=== PATIENT | male | born 1960 | race American Indian/Alaskan Native ===

== ENCOUNTER 2017-04-19 12:26 | Emergency (ER) | payer MEDICAID ==
[2017-04-19 12:28] VITALS: BMI 35.4
[2017-04-19 12:37] VITALS: TEMP 98.5
[2017-04-19] MEDS ORDERED: Bupivacaine 0.5% Inj(30mL) IJ STA (12:57)
--- NOTE | 2017-04-19 13:01 | ED PDOC ---
Arrival/HPI - General Chief Complaint: Abnormal Skin Integrity Time Seen by Provider: 04/19/17 12:45 Historian: Patient - History of Present Illness Narrative History of Present Illness (Text): 04/19/17 13:01 54 y/o male, pmh including DM/hypercholestremia, nkda, c/o posterior neck lump and pain x 6 days with no fall or trauma. Patient stated he saw Dr. Sherman Thomas who performed an I&D x 2 days ago. Patient stated he changes dressing this morning. Packing came off during wound dressing changing. He stated abscess started to swell up. He feels infection has worsen. Patient admits taking ABX as instructed by his doctor. Patient denies other complains. Time/Duration: Other (see hpi) Context: Home Past Medical History - Provider Review Nursing Documentation Reviewed: Yes - Infectious Disease Hx of Infectious Diseases: None - Cardiac Hx Cardiac Disorders: Yes Hx Hypertension: Yes - Pulmonary Hx Respiratory Disorders: No - Neurological Hx Neurological Disorder: No - HEENT Hx HEENT Disorder: No - Renal Hx Renal Disorder: No - Endocrine/Metabolic Hx Endocrine Disorders: Yes Hx Diabetes Mellitus Type 2: Yes - Hematological/Oncological Hx Blood Disorders: No - Integumentary Hx Dermatological Disorder: No - Musculoskeletal/Rheumatological Hx Musculoskeletal Disorders: No - Gastrointestinal Hx Gastrointestinal Disorders: Yes - Genitourinary/Gynecological Hx Genitourinary Disorders: No - Psychiatric Hx Psychophysiologic Disorder: No Hx Substance Use: No - Surgical History Other/Comment: ABD SURGERY R/T HERNIA - Anesthesia Hx Anesthesia Reactions: No Hx Malignant Hyperthermia: No Family/Social History - Physician Review Nursing Documentation Reviewed: Yes Family/Social History: Other (noncontributory) Smoking Status: Current Some Days Smoker Hx Alcohol Use: No Hx Substance Use: No Allergies/Home Meds Allergies/Adverse Reactions: Allergies caffeine Adverse Reaction (Intermediate, Verified 04/19/17 12:31) ABDOMINAL PAIN Home Medications: Home Meds Medication Instructions Recorded Confirmed Atorvastatin [Lipitor] 80 mg PO QAM 03/05/15 04/19/17 Insulin Detemir [Levemir] 50 unit SQ HS 03/05/15 04/19/17 Carboxymethyl/Glycerin/Poly80 10 ml BOTHEYES TID 04/14/17 04/19/17 [Refresh Optive Advanced 0.5%-1%-0.5% 10 ml] Empagliflozin [Jardiance] 10 mg PO QAM 04/14/17 04/19/17 Ezetimibe [Zetia] 10 mg PO QAM 04/14/17 04/19/17 Glyburide/Metformin HCl 1 each PO BID 04/14/17 04/19/17 [Glyburide-Metformin 5-500 mg] Latanoprost 0.005% Opht [XALATAN 1 drp BOTHEYES HS 04/14/17 04/19/17 2.5 Ml] Lisinopril [Zestril] 10 mg PO QAM 04/14/17 04/19/17 Polyethylene Glycol 3350 [Miralax] 17 gm PO DAILY 04/14/17 04/19/17 Review of Systems - Review of Systems Constitutional: Normal. absent: Fatigue, Weight Change, Fevers Eyes: Normal ENT: Normal Respiratory: Normal Cardiovascular: Normal Gastrointestinal: Normal Genitourinary Male: Normal Musculoskeletal: Normal Skin: Abscess Neurological: Normal Endocrine: Normal Hemo/Lymphatic: Normal Psychiatric: Normal Physical Exam Vital Signs Temp Pulse Resp BP Pulse Ox 04/19/17 14:13 94 H 18 116/74 98 04/19/17 12:36 98.5 F 102 H 16 118/84 98 Temperature: Afebrile Blood Pressure: Normal Pulse: Regular Respiratory Rate: Normal Appearance: Positive for: Well-Appearing, Non-Toxic, Comfortable Pain Distress: None Mental Status: Positive for: Alert and Oriented X 3 - Systems Exam Head: Present: Atraumatic, Normocephalic Pupils: Present: PERRL Extroacular Muscles: Present: EOMI Conjunctiva: Present: Normal Mouth: Present: Moist Mucous Membranes Neck: Present: Normal Range of Motion, Trachea Midline, Other ((+) posterior neck with a swollen abscess. Trace discharge noted on wound dressing.). No: Paraspinal Tenderness Upper Extremity: Present: Normal Inspection, Normal ROM Lower Extremity: Present: Normal Inspection, Normal ROM Neurological: Present: GCS=15, CN II-XII Intact, Speech Normal Skin: Present: Warm, Dry, Normal Color. No: Rashes Psychiatric: Present: Alert, Oriented x 3, Normal Insight, Normal Concentration Medical Decision Making ED Course and Treatment: 04/19/17 13:00 Dr. Sherman Thomas was paged 04/19/17 13:08 Dr. Sherman Thomas is at patient's bedside 04/19/17 14:15 I&D procedure was done by dr. Sherman Thomas and surgical scheduler. He recommended ABX, and to follow up his in his office in 2 days. - Medication Orders Current Medication Orders: Discontinued Medications Bupivacaine HCl (Marcaine 0.5%) 3 ml IJ STAT STA Stop: 04/19/17 12:58 Trimethoprim/Sulfamethoxazole (Bactrim Ds Tab) 1 tab PO STAT STA PRN Reason: Protocol Stop: 04/19/17 14:09 Disposition/Present on Arrival - Present on Arrival Any Indicators Present on Arrival: No History of DVT/PE: No History of Uncontrolled Diabetes: Yes Urinary Catheter: No History of Decub. Ulcer: No History Surgical Site Infection Following: None - Disposition Have Diagnosis and Disposition been Completed?: Yes Diagnosis: Abscess Disposition: HOME/ ROUTINE Disposition Time: 14:16 Patient Plan: Discharge Condition: GOOD Discharge Instructions (ExitCare): Abscess Incision and Drainage, Boil (DC) Additional Instructions: Call private doctor for follow up visit in 1-2 days. Take medication as instructed with food. Keep wound clean and dry for 2 days. Return to emergency if you develop a fever, worsening of infection, worsening of pain. Dr. Thomas wants to see you in his office in 2 days Prescriptions: Sulfamethoxazole/Trimethoprim [Bactrim DS 800 mg-160 mg] 1 tab PO BID #14 tab Referrals: Analy Redmond MD [Primary Care Provider] - Follow up with primary Forms: [employer] (Romansh)
[2017-04-19] MEDS ORDERED: Tmp-Smz 800 mg-160 mg DS Tab PO STA (14:08)
[2017-04-19 14:58] VITALS: BP 120/87; PULSE 82; RESP 16; O2SAT 100
--- NOTE | 2017-04-19 16:37 | CP.PCM.CON ---
History of Present Illness - History of Present Illness History of Present Illness: General Surgery consult for Dr. Thomas Consulted for: Persistent abscess of the neck Patient is a 56M with PMH of DM who was seen recently in Dr. Thomas' office for recurrent subcutaneous abscess of his left posterior neck. Abscess was drained by Dr. Thomas' at that time and patient was given PO antibiotics which patient reports he took. Today patient came to ER with worsened pain and swelling in the neck. Opening for drainage had closed and abscess had recurred. Patient denies fevers or chills. Patient was afebrile in the ER with mild tachycardia. Review of Systems - Review of Systems All systems: reviewed and no additional remarkable complaints except (as per HPI ) Past Patient History - Infectious Disease Hx of Infectious Diseases: None - Past Medical History & Family History Past Medical History?: Yes Past Family History: Reviewed and not pertinent - Past Social History Smoking Status: Current Some Days Smoker - CARDIAC Hx Cardiac Disorders: Yes Hx Hypertension: Yes - PULMONARY Hx Respiratory Disorders: No - NEUROLOGICAL Hx Neurological Disorder: No - HEENT Hx HEENT Problems: No - RENAL Hx Chronic Kidney Disease: No - ENDOCRINE/METABOLIC Hx Endocrine Disorders: Yes Hx Diabetes Mellitus Type 2: Yes - HEMATOLOGICAL/ONCOLOGICAL Hx Blood Disorders: No - INTEGUMENTARY Hx Dermatological Problems: No - MUSCULOSKELETAL/RHEUMATOLOGICAL Hx Musculoskeletal Disorders: No - GASTROINTESTINAL Hx Gastrointestinal Disorders: Yes - GENITOURINARY/GYNECOLOGICAL Hx Genitourinary Disorders: No - PSYCHIATRIC Hx Psychophysiologic Disorder: No Hx Substance Use: No - SURGICAL HISTORY Other/Comment: ABD SURGERY R/T HERNIA. L Neck abscess I&D x2 - ANESTHESIA Hx Anesthesia Reactions: No Hx Malignant Hyperthermia: No Meds Home Medications: Home Medication List Medication Instructions Recorded Confirmed Type Sulfamethoxazole/Trimethoprim 1 tab PO BID #14 tab 04/19/17 Rx [Bactrim DS 800 mg-160 mg] Allergies/Adverse Reactions: Allergies Allergy/AdvReac Type Severity Reaction Status Date / Time caffeine AdvReac Intermediate ABDOMINAL Verified 04/19/17 12:31 PAIN Physical Exam - Constitutional Appears: Well, Non-toxic, No Acute Distress - Head Exam Head Exam: ATRAUMATIC, NORMOCEPHALIC - Eye Exam Eye Exam: Normal appearance. absent: Conjunctival injection, Scleral icterus - ENT Exam ENT Exam: Mucous Membranes Moist, Normal Oropharynx - Respiratory Exam Respiratory Exam: NORMAL BREATHING PATTERN. absent: Accessory Muscle Use, Respiratory Distress - Cardiovascular Exam Cardiovascular Exam: RRR - Extremities Exam Extremities exam: Negative for: calf tenderness, pedal edema - Neurological Exam Neurological exam: Alert, Oriented x3 - Psychiatric Exam Psychiatric exam: Normal Affect, Normal Mood - Skin Skin Exam: Dry, Intact, Warm Additional comments: Left posterior neck skin induration and swelling with subcutaneous fluctuance, area of prior incision closed. Results - Vital Signs Recent Vital Signs: Last Vital Signs Temp 98.5 F 04/19/17 12:36 Pulse 82 04/19/17 14:55 Resp 16 04/19/17 14:55 BP 120/87 04/19/17 14:55 Pulse Ox 100 04/19/17 14:55 Assessment & Plan - Assessment and Plan (Free Text) Assessment: 56M with recurrent left posterior neck abscess Plan: -Incision and drainage at bedside -Wound culture -PO antibiotics -Follow up with Dr. Thomas in 2-3 days to re-evaluate -Tylenol for pain -Return to ER for any fever >100.4 refractory to tylenol Seen and examined with Dr. William Arauz, PGY2 Addendum Addendum: Procedure note Surgeon: Sherman Thomas Design Specialist: Astrid Arauz PGY2 Pre-op diagnosis: subcutaneous abscess left posterior neck Operative findings: Purulent, foul smelling fluid in subcutaneous tissues Post-op diagnosis: same Anesthesia: 8cc's 0.5% bupivicaine local injection Specimen: Culture of neck wound fluid Blood loss: 5cc's Drain: red rubber catheter tip approx 3cm long Patient was verbally consented as was witnessed by nurse, Lakshmi. Time out was performed verifying patient's identity, Surgeon to be performing the procedure, indication for procedure, as well as what procedure was being performed and on which location. Patient was draped in a sterile manner and injected with local anesthetic subcutaneously. An #11 blade was used to make a cruciate incision, upon which purulent drainage was freely expressed. Cultures were sent. Subcutaneous loculations were explored with a hemostat. The tip of a red-rubber catheter was inserted into the wound and sutured in place with a 3-0 vicryl suture. Area was dressed with sterile gauze and an Abdominal pad and secured in place with tape. Patient tolerated the procedure well and was discharged to home with PO antibiotics. The procedure was performed in its entirety with Dr. Thomas present.
== END 2017-04-19 14:55 | disposition home or self-care (01) ==
LOC: ED 12:26
DX: L02.11 Cutaneous abscess of neck (principal); E11.9 Type 2 diabetes mellitus without complications; I10 Essential (primary) hypertension
CPT/HCPCS: 10060; 87070; 87181; 96372; 99283; J1885

== ENCOUNTER 2017-04-21 06:52 | Day surgery (SDC) | payer MEDICAID ==
[2017-04-14 11:18] VITALS: BMI 35.4
[2017-04-21] MEDS ORDERED: Propofol 10 mg/ml Inj (20 ML) ONE (08:25)
[2017-04-21] MEDS ORDERED: Sodium Chloride 0.9% 1,000 ML IV SCH ×2 (09:30→09:45)
[2017-04-21 10:25] VITALS: BP 116/80; PULSE 85; RESP 14; TEMP 97.8; O2SAT 98
== END 2017-04-21 11:00 | disposition home or self-care (01) ==
LOC: ENDO 06:52
PROVIDERS: ATTEND Internal Medicine
DX: Z12.11 Encounter for screening for malignant neoplasm of colon (principal); K59.09 Other constipation; K64.8 Other hemorrhoids; E11.9 Type 2 diabetes mellitus without complications; I10 Essential (primary) hypertension
CPT/HCPCS: 45378; 82948; J2704; J7040 ×2

== ENCOUNTER 2017-07-23 23:05 | Inpatient (IN) | payer MEDICAID ==
[2017-07-24 00:07] VITALS: BMI 37.5
[2017-07-24] MEDS ORDERED: Vancomycin 1gm in NS 250ml 1 GM/250 ML BAG IVPB STA (00:19)
[2017-07-24] MEDS ORDERED: Morphine 4 mg/ml ISec IVP STA (00:19)
[2017-07-24] MEDS ORDERED: Sodium Chloride 0.9% 1,000 ML IV STA (00:19)
[2017-07-24] MEDS ORDERED: Piperacillin/Tazobact 3.375 gm 100 ML IVPB STA (00:19)
[2017-07-24 01:06] LABS: BASO # 0.04 K/mm3 (0.0-2.0); BASO % 0.2 % (0.0-3.0); EOS # 0.2 (0.0-0.7); EOS % 1.3 % (1.5-5.0); GRAN # 10.94 (1.4-6.5); GRAN % 67.1 % (50.0-68.0); HEMOGLOBIN 13.7 g/dL (14.0-18.0); LYMPH # 4.2 (1.2-3.4); LYMPH % 25.9 % (22.0-35.0); MEAN CELL VOLUME 90.6 fl (80.0-105.0); MEAN CORPUSCULAR HEMOGLOBIN 31.6 pg (25.0-35.0); MEAN CORPUSCULAR HGB CONC 34.9 g/dl (31.0-37.0); MEAN PLATELET VOLUME 11.2 fl (7.0-11.0); MONO # 0.9 (0.1-0.6); MONO % 5.5 % (1.0-6.0); RBC 4.34 10^6/uL (3.5-6.1); RED CELL DISTRIBUTION WIDTH 13.4 % (11.5-14.5); WHITE BLOOD COUNT 16.3 10^3/ul (4.5-11.0)
--- NOTE | 2017-07-24 01:46 | ED PDOC ---
Arrival/HPI <Loenid Lemos - Last Filed: 07/24/17 05:09> - General Historian: Patient - History of Present Illness Symptom Onset: Gradual Symptom Course: Worsening Activities at Onset: Light Context: Home <Shima Nieves - Last Filed: 07/25/17 15:08> - General Chief Complaint: Abnormal Skin Integrity Time Seen by Provider: 07/24/17 00:15 - History of Present Illness Narrative History of Present Illness (Text): 07/24/17 00:15 56 year old male, whose past medical history includes diabetes, who presents to the emergency department complaining of an abscess to posterior neck. Patient states he was seen yesterday by his surgeon, Dr. Quintin Thomas. Patient states abscess was small at that time and Dr. Thomas attempted to drain the abscess. Patient was supposed to follow-up with Dr. Thomas today but was unable because he had to go to work. Patient now complaining of pain and swelling to posterior aspect of neck, which has worsened. Patient reports associated subjective fever and headache at home. Patient denies any shortness of breath, cough, dizziness, weakness/numbness, or any other complaints. (Shima Nieves) Past Medical History - Provider Review Nursing Documentation Reviewed: Yes - Infectious Disease Hx of Infectious Diseases: None - Cardiac Hx Pacemaker: No - Pulmonary Hx Respiratory Disorders: No - Neurological Hx Paralysis: No - HEENT Hx HEENT Disorder: No - Renal Hx Renal Disorder: No - Endocrine/Metabolic Hx Endocrine Disorders: Yes Hx Diabetes Mellitus Type 2: Yes - Hematological/Oncological Hx Blood Transfusions: No Hx Blood Transfusion Reaction: No - Integumentary Hx Dermatological Disorder: No - Musculoskeletal/Rheumatological Hx Musculoskeletal Disorders: No - Gastrointestinal Hx Gastrointestinal Disorders: Yes - Genitourinary/Gynecological Hx Genitourinary Disorders: No - Psychiatric Hx Emotional Abuse: No Hx Physical Abuse: No Hx Substance Use: No - Surgical History Other/Comment: ABD SURGERY R/T HERNIA. L Neck abscess I&D x2 - Anesthesia Hx Anesthesia: No Hx Anesthesia Reactions: No Hx Malignant Hyperthermia: No - Suicidal Assessment Feels Threatened In Home Enviroment: No <Shima Nieves - Last Filed: 07/25/17 15:08> Family/Social History - Physician Review Nursing Documentation Reviewed: Yes Family/Social History: Unknown Family HX Smoking Status: Current Some Days Smoker Hx Alcohol Use: No Hx Substance Use: No <Shima Nieves - Last Filed: 07/25/17 15:08> Allergies/Home Meds <CaneloLeonid - Last Filed: 07/24/17 05:09> <Shima Nieves - Last Filed: 07/25/17 15:08> Allergies/Adverse Reactions: Allergies caffeine Adverse Reaction (Intermediate, Verified 07/24/17 00:15) ABDOMINAL PAIN Home Medications: Home Meds Medication Instructions Recorded Confirmed Atorvastatin [Lipitor] 80 mg PO QAM 03/05/15 07/24/17 Insulin Detemir [Levemir] 50 unit SQ HS 03/05/15 07/24/17 Empagliflozin [Jardiance] 10 mg PO QAM 04/14/17 07/24/17 Ezetimibe [Zetia] 10 mg PO QAM 04/14/17 07/24/17 Glyburide/Metformin HCl 1 each PO BID 04/14/17 07/24/17 [Glyburide-Metformin 5-500 mg] Lisinopril [Zestril] 10 mg PO QAM 04/14/17 07/24/17 Review of Systems - Physician Review All systems were reviewed & negative as marked: Yes - Review of Systems Constitutional: Fevers (+subjective fever) ENT: Normal Respiratory: absent: SOB, Cough Cardiovascular: absent: Chest Pain Gastrointestinal: absent: Abdominal Pain, Diarrhea, Vomiting Genitourinary Male: absent: Dysuria, Frequency, Hematuria, Urinary Output Changes Musculoskeletal: absent: Back Pain, Neck Pain Skin: Abscess (+posterior neck abscess), Cellulitis. absent: Rash Neurological: Headache. absent: Dizziness Psychiatric: absent: Anxiety, Depression <Shima Nieves T - Last Filed: 07/25/17 15:08> Physical Exam Vital Signs Reviewed: Yes Temperature: Afebrile Blood Pressure: Normal Pulse: Regular Respiratory Rate: Normal Appearance: Positive for: Well-Appearing, Non-Toxic, Comfortable Pain Distress: None Mental Status: Positive for: Alert and Oriented X 3 - Systems Exam Head: Present: Atraumatic, Normocephalic Mouth: Present: Moist Mucous Membranes. No: Drooling, Trismus Pharnyx: Present: Normal (Airway patent). No: ERYTHEMA, EXUDATE, TONSILS ENLARGED, Peritonsilar Swelling, Uvular Deviation, Muffled/Hoarse Voice, Strider , Soft Palate/Uvular Edema Neck: Present: Normal Range of Motion, Other (Large tennis ball sized area of swelling with erythema and induration along the left posterior aspect of the neck with tenderness to the area). No: Meningeal Signs, MIDLINE TENDERNESS, Paraspinal Tenderness Respiratory/Chest: Present: Clear to Auscultation, Good Air Exchange. No: Respiratory Distress, Accessory Muscle Use Cardiovascular: Present: Regular Rate and Rhythm, Normal S1, S2. No: Murmurs Back: Present: Normal Inspection. No: CVA Tenderness, Midline Tenderness, Paraspinal Tenderness Upper Extremity: Present: Normal Inspection. No: Cyanosis, Edema Lower Extremity: Present: Normal Inspection. No: Edema Neurological: Present: GCS=15, Speech Normal Skin: Present: Warm, Dry, Normal Color. No: Rashes Psychiatric: Present: Alert, Oriented x 3, Normal Insight, Normal Concentration <Shima Nieves - Last Filed: 07/25/17 15:08> Vital Signs Temp Pulse Resp BP Pulse Ox 07/24/17 03:56 98.0 F 92 H 18 120/79 98 07/24/17 00:09 99 F 98 H 20 127/89 98 Medical Decision Making <Leonid Lemos - Last Filed: 07/24/17 05:09> - Lab Interpretations I have reviewed the lab results: Yes <Shima Nieves - Last Filed: 07/25/17 15:08> ED Course and Treatment: 07/24/17 05:09 CT Neck Soft Tissues shows: Oropharynx: No significant tonsillar enlargement. No peritonsillar abscess. Hypopharynx: Unremarkable. Larynx: Unremarkable. Normal epiglottis. Trachea: Unremarkable. Retropharyngeal space: Unremarkable. Submandibular/parotid glands: Unremarkable. Glands are normal in size. Thyroid: Unremarkable. No enlarged or calcified nodules. Bones/joints: No acute fracture. Mild degenerative changes of cervical spine. Soft tissues: Skin thickening. 3.1 x 4.8 x 3.3 cm peripherally enhancing hypodense lesion within subcutaneous tissues left posterolateral neck. Mild stranding within adjacent fat. Vasculature: Mild atherosclerotic disease of carotid arteries. Lymph nodes: Few shoddy cervical lymph nodes. Sinuses: Jrxt-oz-ekarbovm mucosal thickening of ethmoid sinuses. Scattered minimal mucosal thickening of remaining sinuses. Tiny LEFT maxillary retention cyst. Mastoid air cells: No mastoid effusion. Lung apices: Unremarkable as visualized. IMPRESSION: 1. Peripherally enhancing lesion with surrounding inflammation within posterior neck. Findings compatible with history of abscess. Differential diagnosis may also include necrotic lymph node/neoplasm. Clinical correlation and follow up are recommended. 2. Incidental/non-acute findings are described above. (Leonid Lemos) 07/24/17 00:15 Impression: 56 year old male complaining of an abscess to posterior aspect of neck with associated pain/swelling to the area. Plan: -- CT Neck Soft Tissue with contrast -- CBC, CMP, blood cultures -- IV fluids -- Vancomycin, Zosyn -- Morphine -- Reassess and disposition Progress Notes: 07/24/17 02:[address] bower; will admit to hospitalist case discussed with dr. Alan Monterroso in depth. will admit to med/surg with dr. thomas consult. CT pending case discussed with dr. reyna; surgical dental assistant. impression; cellulitis of neck admit to med/surg (Shima Nieves) - Lab Interpretations Microbiology Results: Microbiology Results 07/24/17 01:15 Blood Blood Culture - Preliminary NO GROWTH AFTER 24 HOURS 07/24/17 00:47 Blood Blood Culture - Preliminary NO GROWTH AFTER 24 HOURS Lab Results: 07/24/17 00:47 07/24/17 00:47 Lab Results 07/24/17 00:47: PT 11.3, INR 0.99, APTT 29.7 07/24/17 00:47: WBC 16.3 H, RBC 4.34, Hgb 13.7 L, Hct 39.3 L, MCV 90.6, MCH 31.6 , MCHC 34.9, RDW 13.4, Plt Count 197, MPV 11.2 H, Gran % 67.1, Lymph % (Auto) 25.9, [place] % (Auto) 5.5, Eos % (Auto) 1.3 L, Baso % (Auto) 0.2, Gran # 10.94 H, Lymph # (Auto) 4.2 H, [place] # (Auto) 0.9 H, Eos # (Auto) 0.2, Baso # (Auto) 0.04 07/24/17 00:47: Sodium 138, Potassium 4.3, Chloride 102, Carbon Dioxide 26, Anion Gap 14, BUN 14, Creatinine 0.7 L, Est GFR ( Amer) > 60, Est GFR ( Non-Af Amer) > 60, Random Glucose 158 H, Calcium 9.2, Total Bilirubin 0.2, AST 29, ALT 32, Alkaline Phosphatase 79, Total Protein 7.1, Albumin 3.8, Globulin 3.2, Albumin/Globulin Ratio 1.2 - RAD Interpretation Radiology Orders: 07/24/17 00:18 NECK SOFT TISSUE W/CONTRAST [CT] Stat - Medication Orders Current Medication Orders: Acetaminophen (Tylenol 325mg Tab) 650 mg PO Q6H PRN PRN Reason: Pain, Mild (1-3) Atorvastatin Calcium (Lipitor) 80 mg PO QAM [facility] Last Admin: 07/25/17 09:12 Dose: 80 mg Ezetimibe (Zetia) 10 mg PO QAM [facility] Last Admin: 07/25/17 09:12 Dose: 10 mg Fentanyl (Fentanyl) 25 mcg IV Q5M PRN PRN Reason: Pain, moderate (4-7) Piperacillin Sod/Tazobactam Sod (Zosyn 3.375 In Ns 100ml) 100 mls @ 200 mls/hr IVPB Q6 [facility] PRN Reason: Protocol Stop: 07/31/17 06:01 Last Admin: 07/25/17 13:26 Dose: 200 mls/hr eMAR Start Stop Document 07/25/17 13:26 CV (Rec: 07/25/17 13:26 CV [id number]) Intravenous Solution Start Date 07/25/17 Start Time 13:26 Vancomycin HCl (Vancomycin 1gm) 1 gm in 250 mls @ 167 mls/hr IVPB Q12 [facility] PRN Reason: Protocol Last Admin: 07/25/17 09:11 Dose: 167 mls/hr eMAR Start Stop Document 07/25/17 09:11 CV (Rec: 07/25/17 09:12 CV [id number]) Intravenous Solution Start Date 07/25/17 Start Time 09:11 Insulin Detemir (Levemir) 50 unit SC [facility] Last Admin: 07/24/17 21:47 Dose: 50 unit Subcutaneous Administrations Document 07/24/17 21:47 MAD (Rec: 07/24/17 21:48 MAD [id number]) Injection Site MAR Injection Site Left Arm Charges for Administration # of Subcutaneous Administrations 1 Insulin Human Lispro (Humalog Low) 0 units SC ACHS [facility] PRN Reason: Protocol Last Admin: 07/25/17 12:15 Dose: Not Given Non-Admin Reason: Blood Sugar Parameter MAR Blood Glucose Document 07/25/17 12:15 CV (Rec: 07/25/17 12:15 CV [id number]) Blood Glucose Finger Stick Blood Glucose (70-120) 146 Lisinopril (Zestril) 10 mg PO QAM [facility] Last Admin: 07/25/17 09:12 Dose: 10 mg MAR Pulse and Blood Pressure Document 07/25/17 09:12 CV (Rec: 07/25/17 09:12 CV [id number]) Pulse Pulse Rate (60-90 beats/min) 90 Blood Pressure Blood Pressure (100/60-150/90 mm Hg) 118/75 Nicotine (Nicoderm Cq) 1 patch TD DAILY [facility] Last Admin: 07/25/17 09:12 Dose: 1 patch MAR Transdermal Patch Site Document 07/25/17 09:12 CV (Rec: 07/25/17 09:12 CV [place] [id number]) Transdermal Patch Site Transdermal Patch Site Left Shoulder Oxycodone/Acetaminophen (Percocet 5/325 Mg Tab) 1 tab PO Q4H PRN PRN Reason: Pain, severe (8-10) Stop: 07/27/17 11:46 Last Admin: 07/25/17 06:50 Dose: 1 tab MAR Pain Assessment Document 07/25/17 06:50 MAD (Rec: 07/25/17 06:51 MAD [id number]) Pain Reassessment Is this a pain reassessment? Yes Sleep Is patient sleeping during reassessment? No Presence of Pain Presence of Pain Yes Pain Scale Used Pain Scale Used Numeric Location Left, Right or Bilateral Left Pain Location Body Site Neck Description Description Throbbing Intensity of Pain at present 7 Acceptable Level of Pain 3 Pain Behavior Grasping Site Alleviating Factors/Management Medication Techniques Alleviating Factors Medication Tramadol HCl (Ultram) 50 mg PO TID PRN PRN Reason: Pain, moderate (4-7) Discontinued Medications Sodium Chloride (Sodium Chloride 0.9%) 1,000 mls @ 999 mls/hr IV .Q1H1M STA Stop: 07/24/17 01:19 Last Admin: 07/24/17 00:57 Dose: 999 mls/hr eMAR Start Stop Document 07/24/17 00:57 [id number] (Rec: 07/24/17 00:58 [email or web address]) Intravenous Solution Start Date 07/24/17 Start Time 00:58 End Date 07/24/17 End time 02:00 Total Infusion Time 62 Vancomycin HCl (Vancomycin 1gm) 1 gm in 250 mls @ 167 mls/hr IVPB STAT STA PRN Reason: Protocol Stop: 07/24/17 01:48 Last Admin: 07/24/17 02:23 Dose: 167 mls/hr eMAR Start Stop Document 07/24/17 02:23 EMILIA (Rec: 07/24/17 02:24 [email or web address]) Intravenous Solution Start Date 07/24/17 Start Time 02:10 Piperacillin Sod/Tazobactam Sod (Zosyn 3.375 In Ns 100ml) 100 mls @ 200 mls/hr IVPB STAT STA PRN Reason: Protocol Stop: 07/24/17 00:48 Last Admin: 07/24/17 00:58 Dose: 200 mls/hr eMAR Start Stop Document 07/24/17 00:58 EMILIA (Rec: 07/24/17 00:58 [email or web address]) Intravenous Solution Start Date 07/24/17 Start Time 00:58 End Date 07/24/17 End time 01:30 Total Infusion Time 32 Vancomycin HCl (Vancomycin 1gm) 1 gm in 250 mls @ 167 mls/hr IVPB DAILY [facility] PRN Reason: Protocol Lactated Ringer's (Lactated Ringer's) 1,000 mls @ 125 mls/hr IV .Q8H [facility] Last Admin: 07/24/17 04:51 Dose: 125 mls/hr eMAR Start Stop Document 07/24/17 04:51 MAD (Rec: 07/24/17 04:51 MAD [id number]) Intravenous Solution Start Date 07/24/17 Start Time 04:51 Insulin Human Lispro (Humalog Low) 0 units SC Q6H [facility] PRN Reason: Protocol Morphine Sulfate (Morphine) 4 mg IVP STAT STA Stop: 07/24/17 00:20 Last Admin: 07/24/17 00:57 Dose: 4 mg MAR Pain Assessment Document 07/24/17 00:57 [facility] (Rec: 07/24/17 00:57 [email or web address]) Pain Reassessment Is this a pain reassessment? No Sleep Is patient sleeping during reassessment? No Presence of Pain Presence of Pain No Pain Scale Used Pain Scale Used Numeric Location Pain Location Body Angle [place] Description Description Throbbing Intensity of Pain at present 10 Acceptable Level of Pain 0 Pain Behavior Moaning Rubbing Site Aggravating Factors ADL's IVP Administration Document 07/24/17 00:57 [facility] (Rec: 07/24/17 00:57 [email or web address]) Charges for Administration # of IVP Administrations 1 Morphine Sulfate (Morphine) 4 mg IVP Q4H PRN PRN Reason: Pain, severe (8-10) Last Admin: 07/24/17 09:26 Dose: 4 mg MAR Pain Assessment Document 07/24/17 09:26 (Rec: 07/24/17 09:26 [id number]) Pain Reassessment Is this a pain reassessment? No Sleep Is patient sleeping during reassessment? No Presence of Pain Presence of Pain Yes Pain Scale Used Pain Scale Used Numeric Location Pain Location Body Angle [place] Description Intensity of Pain at present 10 IVP Administration Document 07/24/17 09:26 Y (Rec: 07/24/17 09:26 [id number]) Charges for Administration # of IVP Administrations 1 - PA / OR FIRST ASSIST REGISTERED NURSE / Resident Statement MD/DO has reviewed & agrees with the documentation as recorded. MD/DO has examined the patient and agrees with the treatment plan. <Leonid Lemos - Last Filed: 07/24/17 05:09> - Scribe Statement The provider has reviewed the documentation as recorded by the Scribe <Shima Nieves - Last Filed: 07/25/17 15:08> - Scribe Statement Caitlin Dean Provider Scribe Attestation: All medical record entries made by the Scribe were at my direction and personally dictated by me. I have reviewed the chart and agree that the record accurately reflects my personal performance of the history, physical exam, medical decision making, and the department course for this patient. I have also personally directed, reviewed, and agree with the discharge instructions and disposition. (Shima Nieves) Disposition/Present on Arrival <Leonid Lemos - Last Filed: 07/24/17 05:09> - Present on Arrival Any Indicators Present on Arrival: Yes History of DVT/PE: No History of Uncontrolled Diabetes: Yes Urinary Catheter: No History of Decub. Ulcer: No History Surgical Site Infection Following: None - Disposition Have Diagnosis and Disposition been Completed?: Yes Disposition Time: 02:50 Patient Plan: Admission <Shima Nieves - Last Filed: 07/25/17 15:08> - Disposition Diagnosis: Cellulitis of neck Disposition: HOSPITALIZED Patient Problems: Current Active Problems Problem Status Onset Cellulitis of neck Acute Condition: FAIR
[2017-07-24 01:55] LABS: ALB/GLOB RATIO 1.2 (1.1-1.8); ALBUMIN 3.8 g/dL (3.0-4.8); ALT/SGPT 32 U/L (7-56); AST/SGOT 29 U/L (17-59); BLOOD UREA NITROGEN 14 mg/dL (7-21); CALCIUM 9.2 mg/dL (8.4-10.5)
[2017-07-24 02:02] LABS: GFR NON-AFRICAN AMERICAN > 60
[2017-07-24 02:03] LABS: GFR AFRICAN-AMERICAN > 60
[2017-07-24] MEDS ORDERED: Iohexol 350 MG/100 ML VIAL ONE (02:27)
--- NOTE | 2017-07-24 03:35 | CP.PCM.HP ---
<Yee Palafox - Last Filed: 07/24/17 03:24> History of Present Illness - History of Present Illness History of Present Illness: Patient is a 56 year old male with a past medical history of IDDM, and recurring left posterior neck abscess who presents to the ED for reccurence of the neck abscess. Patient has had this twice since 2016. Patient says it started hurting him on Thursday so he went to see Dr. Thomas that day, and while there he tried to drain it with a needle but was unsuccessful. Patient says he was told to come back to try again but could not return because he had to work so he started taking an antibiotic yesterday that he cannot recall the name of. Patient says the pain worsened and began to cause him a "migraine headache" starting occipitally and radiating around forwards toward his left ear. He describes the pain as sharp, throbbing, constant, and 10 /10 intensity. He says the pain is worsened when turning his head to the left and nothing makes it better. He admits to associated chills, and dizziness while he was at work today. He otherwise denies fever, changes in vision/hearing , sore throat, numbness/tingling down arms, chest pain, SOB, palpitations, abdominal pain, nausea, vomiting, diarrhea, constipation, changes in urinary habits, and pain in his back or legs. Surgeon: Dr. Thomas PMH: IDDM Allergies: nkda PSH: hiatal hernia repair, I&D x2 of neck abscess with drain on one occasion SH: smokes 1/2 PPD fofr 49 years (since he was 7 years old), denies alcohol or drug use FH: mother and father with DM Present on Admission - Present on Admission Any Indicators Present on Admission: No Review of Systems - Review of Systems All systems: reviewed and no additional remarkable complaints except (as per HPI ) Past Patient History - Infectious Disease Hx of Infectious Diseases: None - Past Medical History & Family History Past Medical History?: Yes - Past Social History Smoking Status: Current Some Days Smoker - CARDIAC Hx Pacemaker: No - PULMONARY Hx Respiratory Disorders: No - NEUROLOGICAL Hx Paralysis: No - HEENT Hx HEENT Problems: No - RENAL Hx Chronic Kidney Disease: No - ENDOCRINE/METABOLIC Hx Endocrine Disorders: Yes Hx Diabetes Mellitus Type 2: Yes - HEMATOLOGICAL/ONCOLOGICAL Hx Blood Transfusions: No Hx Blood Transfusion Reaction: No - INTEGUMENTARY Hx Dermatological Problems: No - MUSCULOSKELETAL/RHEUMATOLOGICAL Hx Musculoskeletal Disorders: No - GASTROINTESTINAL Hx Gastrointestinal Disorders: Yes - GENITOURINARY/GYNECOLOGICAL Hx Genitourinary Disorders: No - PSYCHIATRIC Hx Emotional Abuse: No Hx Physical Abuse: No Hx Substance Use: No - SURGICAL HISTORY Other/Comment: ABD SURGERY R/T HERNIA. L Neck abscess I&D x2 - ANESTHESIA Hx Anesthesia: No Hx Anesthesia Reactions: No Hx Malignant Hyperthermia: No Meds Allergies/Adverse Reactions: Allergies Allergy/AdvReac Type Severity Reaction Status Date / Time caffeine AdvReac Intermediate ABDOMINAL Verified 07/24/17 00:15 PAIN Physical Exam - Constitutional Appears: Non-toxic, No Acute Distress - Head Exam Head Exam: ATRAUMATIC, NORMAL INSPECTION, NORMOCEPHALIC - Eye Exam Eye Exam: EOMI, Normal appearance, PERRL - ENT Exam ENT Exam: Mucous Membranes Moist - Neck Exam Neck exam: Positive for: Tenderness. Negative for: Full Rom (decreased head rotation to the left due to pain) Additional comments: Large area of induration of the posterior left neck extending from the midline to just posterior of the left ear with overlying erythema and 2 post I&D scars - Respiratory Exam Respiratory Exam: Clear to Auscultation Bilateral, NORMAL BREATHING PATTERN. absent: Accessory Muscle Use, Rales, Rhonchi, Wheezes, Respiratory Distress - Cardiovascular Exam Cardiovascular Exam: REGULAR RHYTHM, +S1, +S2. absent: Diastolic murmur, Gallop , Rubs, Systolic Murmur - GI/Abdominal Exam GI & Abdominal Exam: Normal Bowel Sounds, Soft. absent: Distended, Tenderness Additional comments: obese abdomen - Extremities Exam Extremities exam: Positive for: normal inspection. Negative for: calf tenderness, pedal edema - Neurological Exam Neurological exam: Alert, Oriented x3 Additional comments: No motorsensory abnormalities - Psychiatric Exam Psychiatric exam: Normal Affect, Normal Mood - Skin Skin Exam: Dry, Intact, Normal Color (except for erythema noted above), Warm Results - Vital Signs Recent Vital Signs: Last Vital Signs Temp 99 F 07/24/17 00:09 Pulse 98 H 07/24/17 00:09 Resp 20 07/24/17 00:09 BP 127/89 07/24/17 00:09 Pulse Ox 98 07/24/17 00:09 - Labs Result Diagrams: 07/24/17 00:47 07/24/17 00:47 Labs: Laboratory Results - last 24 hr 07/24/17 07/24/17 00:47 00:47 WBC 16.3 H RBC 4.34 Hgb 13.7 L Hct 39.3 L MCV 90.6 MCH 31.6 MCHC 34.9 RDW 13.4 Plt Count 197 MPV 11.2 H Gran % 67.1 Lymph % (Auto) 25.9 [place] % (Auto) 5.5 Eos % (Auto) 1.3 L Baso % (Auto) 0.2 Gran # 10.94 H Lymph # (Auto) 4.2 H [place] # (Auto) 0.9 H Eos # (Auto) 0.2 Baso # (Auto) 0.04 Sodium 138 Potassium 4.3 Chloride 102 Carbon Dioxide 26 Anion Gap 14 BUN 14 Creatinine 0.7 L Est GFR ( Amer) > 60 Est GFR (Non-Af Amer) > 60 Random Glucose 158 H Calcium 9.2 Total Bilirubin 0.2 AST 29 ALT 32 Alkaline Phosphatase 79 Total Protein 7.1 Albumin 3.8 Globulin 3.2 Albumin/Globulin Ratio 1.2 Assessment & Plan - Assessment and Plan (Free Text) Assessment: Patient is a 56 year old male with a past medical history of IDDM, and recurring left posterior neck abscess who presents to the ED for reccurence of the neck abscess. Plan: Abscess of left posterior neck * soft tissue neck CT - read pending * Dr. Thomas consulted - help appreciated * Dr Matta consulted - help appreciated * leukocytosis of 16.3 * afebrile * Continue abx given in ED (Vanc and Zosyn) * f/u blood cultures Anemia * H&H 13.7 and 39.3 * Monitor with morning labs History of DM * Continue home meds * Med dose insulin sliding scale * Accuchecks ACHS * Moderate Consistent Carb Diet * f/u HbA1c (last was 11.8 in 2014) History of HTN * Continue home meds * Monitor History of HLD * Continue home meds * f/u lipid panel <Isabel Monterroso N - Last Filed: 07/24/17 18:44> Results - Vital Signs Recent Vital Signs: Last Vital Signs Temp 98 F 07/24/17 14:00 Pulse 93 H 07/24/17 14:00 Resp 20 07/24/17 14:00 BP 142/87 07/24/17 14:00 Pulse Ox 98 07/24/17 14:00 - Labs Result Diagrams: 07/24/17 07:00 07/24/17 07:00 Labs: Laboratory Results - last 24 hr 07/24/17 07/24/17 07/24/17 04:02 06:44 07:00 WBC RBC Hgb Hct MCV MCH MCHC RDW Plt Count MPV Gran % Lymph % (Auto) [place] % (Auto) Eos % (Auto) Baso % (Auto) Gran # Lymph # (Auto) [place] # (Auto) Eos # (Auto) Baso # (Auto) Sodium 138 Potassium 3.9 Chloride 104 Carbon Dioxide 25 Anion Gap 14 BUN 12 Creatinine 0.7 L Est GFR ( Amer) > 60 Est GFR (Non-Af Amer) > 60 POC Glucose (mg/dL) 119 H 144 H Random Glucose 147 H Hemoglobin A1c Calcium 8.5 Phosphorus 4.0 Magnesium 1.8 Total Bilirubin 0.4 AST 24 ALT 29 Alkaline Phosphatase 76 Total Protein 6.6 Albumin 3.6 Globulin 3.0 Albumin/Globulin Ratio 1.2 Triglycerides 130 Cholesterol 148 LDL Cholesterol Direct 85 HDL Cholesterol 40 07/24/17 07/24/17 07/24/17 07:00 07:00 16:05 WBC 14.4 H RBC 4.31 Hgb 13.3 L Hct 39.2 L MCV 91.0 MCH 30.9 MCHC 33.9 RDW 13.3 Plt Count 189 MPV 11.0 Gran % 64.2 Lymph % (Auto) 25.9 [place] % (Auto) 7.4 H Eos % (Auto) 2.2 Baso % (Auto) 0.3 Gran # 9.23 H Lymph # (Auto) 3.7 H [place] # (Auto) 1.1 H Eos # (Auto) 0.3 Baso # (Auto) 0.04 Sodium Potassium Chloride Carbon Dioxide Anion Gap BUN Creatinine Est GFR ( Amer) Est GFR (Non-Af Amer) POC Glucose (mg/dL) 247 H Random Glucose Hemoglobin A1c 11.9 H Calcium Phosphorus Magnesium Total Bilirubin AST ALT Alkaline Phosphatase Total Protein Albumin Globulin Albumin/Globulin Ratio Triglycerides Cholesterol LDL Cholesterol Direct HDL Cholesterol
[2017-07-24] MEDS ORDERED: Dextrose 50% SYRINGE Inj (50 ml) IVP PRN (04:05)
[2017-07-24 04:06] LABS: INR 0.99 (0.93-1.08); PARTIAL THROMBOPLASTIN TIME 29.7 Seconds (25.1-36.5); PROTHROMBIN TIME 11.3 SECONDS (9.4-12.5)
[2017-07-24] MEDS ORDERED: Lactated Ringer's 1,000 ML IV SCH (04:15)
--- NOTE | 2017-07-24 04:22 | CP.PCM.CON ---
<Astrid Arauz - Last Filed: 07/24/17 04:15> History of Present Illness - History of Present Illness History of Present Illness: General surgery consult note for Dr. Thomas consulted for; recurrent left neck abscess patient is a 56M with PMH pertinent for DM and HTN, obesity, and smoking, who presents to ED with recurrent left neck abscess. Patient states that he originally had the left neck abscess, it was drained by Dr. Thomas in his office, but then returned three months ago. Dr. Thomas did an incision in the ER, placed a red-rubber catheter to drain the fluid, and was sent home on antibiotics. Patient noted recurrence of the infection earlier this week, Dr. Thomas attempted to aspirate it on Thursday unsuccessfully and sent patient home on unknown PO antibiotics. Patient states he took them as directed the following day. Patient was not compliant with plan to follow up in the office the next day and the wound worsened and patient came to ER 4 days later. Patient reports chills but no fevers, and a pressure and throbbing in his head at the are of the swelling. patient denies any vision changes, numbness any where, or any other focal weaknesses. PMH: DM, HTN, HLD, obesity PSH: intraabdominal hernia repair as child, left neck I&D ALL: caffeine Social: smoke 1/2 PPD for 50 years, denies ETOH or drugs Review of Systems - Review of Systems All systems: reviewed and no additional remarkable complaints except (as per HPI ) Past Patient History - Infectious Disease Hx of Infectious Diseases: None - Past Medical History & Family History Past Medical History?: Yes Past Family History: Reviewed and not pertinent - Past Social History Smoking Status: Current Some Days Smoker - CARDIAC Hx Pacemaker: No - PULMONARY Hx Respiratory Disorders: No - NEUROLOGICAL Hx Paralysis: No - HEENT Hx HEENT Problems: No - RENAL Hx Chronic Kidney Disease: No - ENDOCRINE/METABOLIC Hx Endocrine Disorders: Yes Hx Diabetes Mellitus Type 2: Yes - HEMATOLOGICAL/ONCOLOGICAL Hx Blood Transfusions: No Hx Blood Transfusion Reaction: No - INTEGUMENTARY Hx Dermatological Problems: No - MUSCULOSKELETAL/RHEUMATOLOGICAL Hx Musculoskeletal Disorders: No - GASTROINTESTINAL Hx Gastrointestinal Disorders: Yes - GENITOURINARY/GYNECOLOGICAL Hx Genitourinary Disorders: No - PSYCHIATRIC Hx Emotional Abuse: No Hx Physical Abuse: No Hx Substance Use: No - SURGICAL HISTORY Other/Comment: ABD SURGERY R/T HERNIA. L Neck abscess I&D x2 - ANESTHESIA Hx Anesthesia: No Hx Anesthesia Reactions: No Hx Malignant Hyperthermia: No Meds Allergies/Adverse Reactions: Allergies Allergy/AdvReac Type Severity Reaction Status Date / Time caffeine AdvReac Intermediate ABDOMINAL Verified 07/24/17 00:15 PAIN - Medications Medications: Current Medications Acetaminophen (Tylenol 325mg Tab) 650 mg PO Q6H PRN PRN Reason: Pain, Mild (1-3) Atorvastatin Calcium (Lipitor) 80 mg PO QAM [facility] Dextrose (Dextrose 50% Inj) 50 ml IVP PRN PRN PRN Reason: Hypoglycemia Ezetimibe (Zetia) 10 mg PO QAM [facility] Glyburide (Micronase) 5 mg PO BID [facility] Vancomycin HCl (Vancomycin 1gm) 1 gm in 250 mls @ 167 mls/hr IVPB DAILY [facility] PRN Reason: Protocol Piperacillin Sod/Tazobactam Sod (Zosyn 3.375 In Ns 100ml) 100 mls @ 200 mls/hr IVPB Q6 [facility] PRN Reason: Protocol Stop: 07/24/17 12:29 Lactated Ringer's (Lactated Ringer's) 1,000 mls @ 125 mls/hr IV .Q8H [facility] Insulin Detemir (Levemir) 50 unit SC HS [facility] Insulin Human Regular (Humulin R Med) 0 units SC ACHS [facility] PRN Reason: Protocol Lisinopril (Zestril) 10 mg PO QAM [facility] Morphine Sulfate (Morphine) 4 mg IVP Q4H PRN PRN Reason: Pain, severe (8-10) Empagliflozin [ Jardiance] 10 Mg ( Home Med) 10 mg PO QAM [facility] Tramadol HCl (Ultram) 50 mg PO TID PRN PRN Reason: Pain, moderate (4-7) Physical Exam - Constitutional Appears: Well, Non-toxic, No Acute Distress - Head Exam Head Exam: ATRAUMATIC, NORMOCEPHALIC - Eye Exam Eye Exam: Normal appearance. absent: Conjunctival injection, Scleral icterus - ENT Exam ENT Exam: Mucous Membranes Moist - Neck Exam Additional comments: left posterior neck with inflammed panus with subcutaneous induration approximately 10cm in diameter with 2cm diameter area of fluctuance just inferior to prior scar. No skin breakdown or drainage. - Respiratory Exam Respiratory Exam: NORMAL BREATHING PATTERN. absent: Accessory Muscle Use, Respiratory Distress - Cardiovascular Exam Cardiovascular Exam: Tachycardia, REGULAR RHYTHM - Extremities Exam Extremities exam: Negative for: calf tenderness, tenderness - Neurological Exam Neurological exam: Alert, Oriented x3 - Psychiatric Exam Psychiatric exam: Normal Affect, Normal Mood - Skin Skin Exam: Dry, Intact, Normal Color, Warm Additional comments: except as noted in the neck section Results - Vital Signs Recent Vital Signs: Last Vital Signs Temp 98.0 F 07/24/17 03:56 Pulse 92 H 07/24/17 03:56 Resp 18 07/24/17 03:56 BP 120/79 07/24/17 03:56 Pulse Ox 98 07/24/17 03:56 - Labs Result Diagrams: 07/24/17 00:47 07/24/17 00:47 Labs: Laboratory Results - last 24 hr 07/24/17 04:02 POC Glucose (mg/dL) 119 H Assessment & Plan - Assessment and Plan (Free Text) Assessment: 56M with recurrent left neck abscess CT not read but suspicious for abscess with extensive subcutaneous induration and fluid collection Plan: Patient may benefit from formal incision and debridement in OR Keep NPO IV antibiotics PRn pain medication IV D50 prn for hypoglyemia--no juice F/U official report of the CT--no sign of gas in abscess or surrounding tissue Medical management per primary Discussed with Dr. Thomas, further recs per him Astrid Arauz PYG2 <Sherman Thomas - Last Filed: 07/24/17 15:49> Meds - Medications Medications: Current Medications Acetaminophen (Tylenol 325mg Tab) 650 mg PO Q6H PRN PRN Reason: Pain, Mild (1-3) Atorvastatin Calcium (Lipitor) 80 mg PO QAM [facility] Ezetimibe (Zetia) 10 mg PO QAM [facility] Fentanyl (Fentanyl) 25 mcg IV Q5M PRN PRN Reason: Pain, moderate (4-7) Piperacillin Sod/Tazobactam Sod (Zosyn 3.375 In Ns 100ml) 100 mls @ 200 mls/hr IVPB Q6 [facility] PRN Reason: Protocol Stop: 07/31/17 06:01 Last Admin: 07/24/17 14:20 Dose: 200 mls/hr Vancomycin HCl (Vancomycin 1gm) 1 gm in 250 mls @ 167 mls/hr IVPB Q12 [facility] PRN Reason: Protocol Last Admin: 07/24/17 09:24 Dose: 167 mls/hr Insulin Detemir (Levemir) 50 unit SC HS [facility] Insulin Human Lispro (Humalog Low) 0 units SC ACHS [facility] PRN Reason: Protocol Lisinopril (Zestril) 10 mg PO QAM [facility] Last Admin: 07/24/17 09:24 Dose: 10 mg Nicotine (Nicoderm Cq) 1 patch TD DAILY [facility] Oxycodone/Acetaminophen (Percocet 5/325 Mg Tab) 1 tab PO Q4H PRN PRN Reason: Pain, severe (8-10) Stop: 07/27/17 11:46 Tramadol HCl (Ultram) 50 mg PO TID PRN PRN Reason: Pain, moderate (4-7) Results - Vital Signs Recent Vital Signs: Last Vital Signs Temp 98 F 07/24/17 14:00 Pulse 93 H 07/24/17 14:00 Resp 20 07/24/17 14:00 BP 142/87 07/24/17 14:00 Pulse Ox 98 07/24/17 14:00 - Labs Result Diagrams: 07/24/17 07:00 07/24/17 07:00 Labs: Laboratory Results - last 24 hr 07/24/17 07/24/17 07/24/17 04:02 06:44 07:00 WBC RBC Hgb Hct MCV MCH MCHC RDW Plt Count MPV Gran % Lymph % (Auto) Meigs % (Auto) Eos % (Auto) Baso % (Auto) Gran # Lymph # (Auto) Meigs # (Auto) Eos # (Auto) Baso # (Auto) Sodium 138 Potassium 3.9 Chloride 104 Carbon Dioxide 25 Anion Gap 14 BUN 12 Creatinine 0.7 L Est GFR ( Amer) > 60 Est GFR (Non-Af Amer) > 60 POC Glucose (mg/dL) 119 H 144 H Random Glucose 147 H Hemoglobin A1c Calcium 8.5 Phosphorus 4.0 Magnesium 1.8 Total Bilirubin 0.4 AST 24 ALT 29 Alkaline Phosphatase 76 Total Protein 6.6 Albumin 3.6 Globulin 3.0 Albumin/Globulin Ratio 1.2 Triglycerides 130 Cholesterol 148 LDL Cholesterol Direct 85 HDL Cholesterol 40 07/24/17 07/24/17 07:00 07:00 WBC 14.4 H RBC 4.31 Hgb 13.3 L Hct 39.2 L MCV 91.0 MCH 30.9 MCHC 33.9 RDW 13.3 Plt Count 189 MPV 11.0 Gran % 64.2 Lymph % (Auto) 25.9 Meigs % (Auto) 7.4 H Eos % (Auto) 2.2 Baso % (Auto) 0.3 Gran # 9.23 H Lymph # (Auto) 3.7 H Meigs # (Auto) 1.1 H Eos # (Auto) 0.3 Baso # (Auto) 0.04 Sodium Potassium Chloride Carbon Dioxide Anion Gap BUN Creatinine Est GFR ( Amer) Est GFR (Non-Af Amer) POC Glucose (mg/dL) Random Glucose Hemoglobin A1c 11.9 H Calcium Phosphorus Magnesium Total Bilirubin AST ALT Alkaline Phosphatase Total Protein Albumin Globulin Albumin/Globulin Ratio Triglycerides Cholesterol LDL Cholesterol Direct HDL Cholesterol Assessment & Plan - Assessment and Plan (Free Text) Assessment: Dx Recurrent deep left post neck abscess c/s Enterococcus=no resistance found Ramakrishna: Wider and deep reexploration/Drainage today This consult done under my direct supervision Giovanna Thomas MD FACS
[2017-07-24] MEDS: Morphine 4 mg/ml ISec IVP PRN ×2 (04:50→09:26)
--- NOTE | 2017-07-24 05:07 | CT ---
EXAM: CT Neck With Intravenous Contrast CLINICAL HISTORY: 56 years old, male; Signs and symptoms; Mass, lump, or swelling in neck; Additional info: Abscess/cellulitis posterior neck TECHNIQUE: Axial computed tomography images of the neck with intravenous contrast. All CT scans at this facility use one or more dose reduction techniques, viz.: automated exposure control; ma/kV adjustment per patient size (including targeted exams where dose is matched to indication; i.e. head); or iterative reconstruction technique. Coronal and sagittal reformatted images were created and reviewed. CONTRAST: 96 mL of OMNI 350 administered intravenously. COMPARISON: No relevant prior studies available. FINDINGS: Oropharynx: No significant tonsillar enlargement. No peritonsillar abscess. Hypopharynx: Unremarkable. Larynx: Unremarkable. Normal epiglottis. Trachea: Unremarkable. Retropharyngeal space: Unremarkable. Submandibular/parotid glands: Unremarkable. Glands are normal in size. Thyroid: Unremarkable. No enlarged or calcified nodules. Bones/joints: No acute fracture. Mild degenerative changes of cervical spine. Soft tissues: Skin thickening. 3.1 x 4.8 x 3.3 cm peripherally enhancing hypodense lesion within subcutaneous tissues left posterolateral neck. Mild stranding within adjacent fat. Vasculature: Mild atherosclerotic disease of carotid arteries. Lymph nodes: Few shoddy cervical lymph nodes. Sinuses: [id number] mucosal thickening of ethmoid sinuses. Scattered minimal mucosal thickening of remaining sinuses. Tiny LEFT maxillary retention cyst. Mastoid air cells: No mastoid effusion. Lung apices: Unremarkable as visualized. IMPRESSION: 1. Peripherally enhancing lesion with surrounding inflammation within posterior neck. Findings compatible with history of abscess. Differential diagnosis may also include necrotic lymph node/neoplasm. Clinical correlation and follow up are recommended. 2. Incidental/non-acute findings are described above.
[2017-07-24] MEDS: Piperacillin/Tazobact 3.375 gm 100 ML IVPB SCH ×4 (05:57→23:50)
[2017-07-24 07:28] LABS: BASO # 0.04 K/mm3 (0.0-2.0); BASO % 0.3 % (0.0-3.0); EOS # 0.3 (0.0-0.7); EOS % 2.2 % (1.5-5.0); GRAN # 9.23 (1.4-6.5); GRAN % 64.2 % (50.0-68.0); HEMOGLOBIN 13.3 g/dL (14.0-18.0); LYMPH # 3.7 (1.2-3.4); LYMPH % 25.9 % (22.0-35.0); MEAN CORPUSCULAR HEMOGLOBIN 30.9 pg (25.0-35.0); MEAN CORPUSCULAR HGB CONC 33.9 g/dl (31.0-37.0); MONO # 1.1 (0.1-0.6); MONO % 7.4 % (1.0-6.0); RBC 4.31 10^6/uL (3.5-6.1); RED CELL DISTRIBUTION WIDTH 13.3 % (11.5-14.5); WHITE BLOOD COUNT 14.4 10^3/ul (4.5-11.0)
[2017-07-24] MEDS ORDERED: Insulin Reg-MEDIUM-Coverage SC SCH (07:30)
[2017-07-24 08:08] LABS: ALB/GLOB RATIO 1.2 (1.1-1.8); ALBUMIN 3.6 g/dL (3.0-4.8); ALT/SGPT 29 U/L (7-56); AST/SGOT 24 U/L (17-59); BLOOD UREA NITROGEN 12 mg/dL (7-21); CALCIUM 8.5 mg/dL (8.4-10.5); GFR AFRICAN-AMERICAN > 60; GFR NON-AFRICAN AMERICAN > 60; HDL CHOLESTEROL 40 mg/dL (29-60)
[2017-07-24 08:18] LABS: LDL CHOLESTEROL 85 mg/dL (0-129)
[2017-07-24] MEDS ORDERED: Insulin Lispro (humaLOG) LOW Coverage SC SCH (09:15)
[2017-07-24] MEDS: Vancomycin 1gm in NS 250ml 1 GM/250 ML BAG IVPB SCH ×2 (09:24→21:48)
[2017-07-24] MEDS ORDERED: EMPAGLIFLOZIN 10 MG PO SCH (10:00)
[2017-07-24] MEDS ORDERED: Vancomycin 1gm in NS 250ml 1 GM/250 ML BAG IVPB SCH (10:00)
[2017-07-24] MEDS ORDERED: Bupivacaine 0.5% Inj(30mL) ONE (10:10)
[2017-07-24] MEDS ORDERED: Propofol 10 mg/ml Inj (20 ML) ONE ×2 (10:27→11:03)
--- NOTE | 2017-07-24 11:43 | PCM.SURG1 ---
Surgeon's Initial Post Op Note - Surgeon's Notes Surgeon: Dr. Sherman Thomas [employer] Supervisor: Luz Arias, PGY-1 Type of Anesthesia: General LMA Pre-Operative Diagnosis: Abscess of posterior neck Operative Findings: See op report Post-Operative Diagnosis: Abscess of posterior neck Operation Performed: Incision & drainage of posterior neck abscess with cruciate incision Specimen/Specimens Removed: Purulent wound drainage Estimated Blood Loss: EBL {In ML}: 10 Blood Products Given: N/A Drains Used: Munson (Red rubber catheter) Post-Op Condition: Good Date of Surgery/Procedure: 07/24/17 Time of Surgery/Procedure: 11:42
--- NOTE | 2017-07-24 14:23 | CARD ---
APPROVED REPORT EKG Measurement Heart [id number] <Conclusion> Normal sinus rhythm Normal ECG
--- NOTE | 2017-07-24 14:30 | CP.PCM.PCO ---
Physician Communication Note - Physician Communication Note Physician Communication Note: not in room,reviewed chart, for I and D, started abx, will see melida.
[2017-07-24] MEDS: Insulin Lispro (humaLOG) LOW Coverage SC SCH ×2 (16:52→21:50)
[2017-07-24] MEDS: Oxycodone/Acetaminophen 5/325 mg Tab PO PRN ×2 (18:45→22:38)
[2017-07-24] MEDS: Insulin Detemir 100 units/ml Vial (Levemir) SC SCH (21:47)
[2017-07-25] MEDS: Piperacillin/Tazobact 3.375 gm 100 ML IVPB SCH ×3 (05:47→17:00)
[2017-07-25] MEDS: Oxycodone/Acetaminophen 5/325 mg Tab PO PRN ×2 (06:50→20:46)
[2017-07-25 07:43] LABS: BASO # 0.02 K/mm3 (0.0-2.0); BASO % 0.2 % (0.0-3.0); EOS # 0.3 (0.0-0.7); EOS % 2.8 % (1.5-5.0); GRAN # 6.89 (1.4-6.5); GRAN % 57.4 % (50.0-68.0); HEMOGLOBIN 13.5 g/dL (14.0-18.0); LYMPH # 3.8 (1.2-3.4); LYMPH % 31.8 % (22.0-35.0); MEAN CELL VOLUME 91.8 fl (80.0-105.0); MEAN CORPUSCULAR HEMOGLOBIN 31.5 pg (25.0-35.0); MEAN CORPUSCULAR HGB CONC 34.3 g/dl (31.0-37.0); MEAN PLATELET VOLUME 11.1 fl (7.0-11.0); MONO # 0.9 (0.1-0.6); MONO % 7.8 % (1.0-6.0); RBC 4.29 10^6/uL (3.5-6.1); RED CELL DISTRIBUTION WIDTH 13.4 % (11.5-14.5)
--- NOTE | 2017-07-25 07:59 | CP.PCM.PN ---
<Luz Arias - Last Filed: 07/25/17 07:56> Subjective - Date & Time of Evaluation Date of Evaluation: 07/25/17 Time of Evaluation: 07:56 - Subjective Subjective: General surgery progress note for Dr. Thomas-Luz Arias, PGY-1 Pt S & E at bedside at 0645 Pt reports neck pain overnight, was not tolerable. Denies F & C, N & V, tolerating diet. Objective - Vital Signs/Intake and Output Vital Signs (last 24 hours): Temp Pulse Resp BP Pulse Ox 98.1 F 90 20 118/25 L 97 07/25/17 06:00 07/25/17 06:00 07/25/17 06:00 07/25/17 06:00 07/25/17 06:00 Intake and Output: 07/25/17 07/25/17 06:59 18:59 Intake Total 360 Balance 360 - Medications Medications: Current Medications Acetaminophen (Tylenol 325mg Tab) 650 mg PO Q6H PRN PRN Reason: Pain, Mild (1-3) Atorvastatin Calcium (Lipitor) 80 mg PO QAM [facility] Last Admin: 07/24/17 16:52 Dose: 80 mg Ezetimibe (Zetia) 10 mg PO QAM [facility] Last Admin: 07/24/17 16:53 Dose: 10 mg Fentanyl (Fentanyl) 25 mcg IV Q5M PRN PRN Reason: Pain, moderate (4-7) Piperacillin Sod/Tazobactam Sod (Zosyn 3.375 In Ns 100ml) 100 mls @ 200 mls/hr IVPB Q6 [facility] PRN Reason: Protocol Stop: 07/31/17 06:01 Last Admin: 07/25/17 05:47 Dose: 200 mls/hr Vancomycin HCl (Vancomycin 1gm) 1 gm in 250 mls @ 167 mls/hr IVPB Q12 [facility] PRN Reason: Protocol Last Admin: 07/24/17 21:48 Dose: 167 mls/hr Insulin Detemir (Levemir) 50 unit SC HS [facility] Last Admin: 07/24/17 21:47 Dose: 50 unit Insulin Human Lispro (Humalog Low) 0 units SC ACHS [facility] PRN Reason: Protocol Last Admin: 07/24/17 21:50 Dose: Not Given Lisinopril (Zestril) 10 mg PO QAM [facility] Last Admin: 07/24/17 09:24 Dose: 10 mg Nicotine (Nicoderm Cq) 1 patch TD DAILY [facility] Last Admin: 07/24/17 17:01 Dose: Not Given Oxycodone/Acetaminophen (Percocet 5/325 Mg Tab) 1 tab PO Q4H PRN PRN Reason: Pain, severe (8-10) Stop: 07/27/17 11:46 Last Admin: 07/25/17 06:50 Dose: 1 tab Tramadol HCl (Ultram) 50 mg PO TID PRN PRN Reason: Pain, moderate (4-7) - Labs Labs: 07/25/17 07:20 07/24/17 07:00 PT 11.3 SECONDS (9.4-12.5) 07/24/17 00:47 INR 0.99 (0.93-1.08) 07/24/17 00:47 APTT 29.7 Seconds (25.1-36.5) 07/24/17 00:47 - Constitutional Appears: Non-toxic, No Acute Distress - Head Exam Head Exam: absent: ATRAUMATIC - Eye Exam Eye Exam: EOMI, Normal appearance - ENT Exam ENT Exam: Mucous Membranes Moist, Normal Exam - Neck Exam Neck Exam: Tenderness. absent: Full ROM, Normal Inspection Additional comments: Posterior neck dressing saturated with sanguinous strike through. Dressing changes, red rubber catheter in place, packing removed. Re-dressed without packing. Wound was tender, minimal purulent drainage, moderate amount of sanguinous drainage, not frankly bleeding. - Respiratory Exam Respiratory Exam: NORMAL BREATHING PATTERN - Cardiovascular Exam Cardiovascular Exam: REGULAR RHYTHM, +S1, +S2 - GI/Abdominal Exam GI & Abdominal Exam: Soft. absent: Distended (obese), Firm, Guarding, Tenderness - Extremities Exam Extremities Exam: Normal Inspection - Back Exam Back Exam: NORMAL INSPECTION - Neurological Exam Neurological Exam: Alert, Awake, CN II-XII Intact, Oriented x3 - Psychiatric Exam Psychiatric exam: Normal Affect, Normal Mood - Skin Skin Exam: Dry, Intact, Normal Color, Warm Additional comments: Please see neck exam for findings Assessment and Plan - Assessment and Plan (Free Text) Assessment: 56M w/recurrent posterior neck abscess POD#1 s/p I & D of abscess Plan: Pain control OOB Ambulate PO Abx Ok to d/c home from surgical standpoint Dressing changes PRN at home FU w/Dr. Thomas next week Red rubber catheter stays in place until seen by Dr. Thomas DW attending Arias, PGY-1 <Sherman Thomas - Last Filed: 07/25/17 08:54> Objective - Vital Signs/Intake and Output Vital Signs (last 24 hours): Temp Pulse Resp BP Pulse Ox 98.1 F 90 20 118/25 L 97 07/25/17 06:00 07/25/17 06:00 07/25/17 06:00 07/25/17 06:00 07/25/17 06:00 Intake and Output: 07/25/17 07/25/17 06:59 18:59 Intake Total 360 Balance 360 - Medications Medications: Current Medications Acetaminophen (Tylenol 325mg Tab) 650 mg PO Q6H PRN PRN Reason: Pain, Mild (1-3) Atorvastatin Calcium ([facility]) [facility] [place] Last Admin: 07/24/17 16:52 Dose: 80 mg Ezetimibe (Zetia) [facility] [place] [place] Last Admin: 07/24/17 16:53 Dose: 10 mg Fentanyl (Fentanyl) 25 mcg IV Q5M PRN PRN Reason: Pain, moderate (4-7) Piperacillin Sod/Tazobactam Sod (Zosyn 3.375 In Ns 100ml) 100 mls @ 200 mls/hr IVPB Q6 [facility] PRN Reason: Protocol Stop: 07/31/17 06:01 Last Admin: 07/25/17 05:47 Dose: 200 mls/hr Vancomycin HCl (Vancomycin 1gm) 1 gm in 250 mls @ 167 mls/hr IVPB Q12 [facility] PRN Reason: Protocol Last Admin: 07/24/17 21:48 Dose: 167 mls/hr Insulin Detemir (Levemir) 50 unit SC HS [facility] Last Admin: 07/24/17 21:47 Dose: 50 unit Insulin Human Lispro (Humalog Low) 0 units SC ACHS [facility] PRN Reason: Protocol Last Admin: 07/25/17 08:10 Dose: Not Given Lisinopril (Zestril) 10 mg PO QAM [facility] Last Admin: 07/24/17 09:24 Dose: 10 mg Nicotine (Nicoderm Cq) 1 patch TD DAILY [facility] Last Admin: 07/24/17 17:01 Dose: Not Given Oxycodone/Acetaminophen (Percocet 5/325 Mg Tab) 1 tab PO Q4H PRN PRN Reason: Pain, severe (8-10) Stop: 07/27/17 11:46 Last Admin: 07/25/17 06:50 Dose: 1 tab Tramadol HCl (Ultram) 50 mg PO TID PRN PRN Reason: Pain, moderate (4-7) - Labs Labs: 07/25/17 07:20 07/25/17 07:20 PT 11.3 SECONDS (9.4-12.5) 07/24/17 00:47 INR 0.99 (0.93-1.08) 07/24/17 00:47 APTT 29.7 Seconds (25.1-36.5) 07/24/17 00:47 Assessment and Plan - Assessment and Plan (Free Text) Assessment: PO 1:Pack out/Drain to remain 2+ weeks Ramakrishna dischardge and f/u office this week Giovanna Thomas MD FACS
[2017-07-25] MEDS: Insulin Lispro (humaLOG) LOW Coverage SC SCH ×4 (08:10→22:19)
[2017-07-25 08:14] LABS: BLOOD UREA NITROGEN 9 mg/dL (7-21); CALCIUM 8.6 mg/dL (8.4-10.5); GFR AFRICAN-AMERICAN > 60; GFR NON-AFRICAN AMERICAN > 60
[2017-07-25] MEDS: Vancomycin 1gm in NS 250ml 1 GM/250 ML BAG IVPB SCH ×2 (09:11→22:23)
--- NOTE | 2017-07-25 14:06 | CP.PCM.PN ---
Subjective - Date & Time of Evaluation Date of Evaluation: 07/25/17 Time of Evaluation: 14:03 - Subjective Subjective: Patient seen and examined at bedside. Per nursing no acute events occurred overnight. Patient does report some pain at the incision site. Patient is tolerating diet without any complaints. Patient's bowel function is active. He denies any fevers, chills, nausea, vomiting, headache, chest pain, abdominal pain, changes in vision, or any other complaints. Objective - Vital Signs/Intake and Output Vital Signs (last 24 hours): Temp Pulse Resp BP Pulse Ox 98.1 F 90 20 118/75 97 07/25/17 06:00 07/25/17 09:12 07/25/17 06:00 07/25/17 09:12 07/25/17 06:00 Intake and Output: 07/25/17 07/25/17 06:59 18:59 Intake Total 360 Balance 360 - Medications Medications: Current Medications Acetaminophen (Tylenol 325mg Tab) 650 mg PO Q6H PRN PRN Reason: Pain, Mild (1-3) Atorvastatin Calcium (Lipitor) 80 mg PO [facility] Last Admin: 07/25/17 09:12 Dose: 80 mg Ez[facility]imibe (Z[facility]ia) [facility] [place] Last Admin: 07/25/17 09:12 Dose: 10 mg Fentanyl (Fentanyl) 25 mcg IV Q5M PRN PRN Reason: Pain, moderate (4-7) Piperacillin Sod/Tazobactam Sod (Zosyn 3.375 In Ns 100ml) 100 mls @ 200 mls/hr IVPB Q6 [facility] PRN Reason: Protocol Stop: 07/31/17 06:01 Last Admin: 07/25/17 13:26 Dose: 200 mls/hr Vancomycin HCl (Vancomycin 1gm) 1 gm in 250 mls @ 167 mls/hr IVPB Q12 [facility] PRN Reason: Protocol Last Admin: 07/25/17 09:11 Dose: 167 mls/hr Insulin Detemir (Levemir) 50 unit SC [facility] Last Admin: 07/24/17 21:47 Dose: 50 unit Insulin Human Lispro (Humalog Low) 0 units SC ACHS [facility] PRN Reason: Protocol Last Admin: 07/25/17 12:15 Dose: Not Given Lisinopril (Zestril) [facility] [place] Last Admin: 07/25/17 09:12 Dose: 10 mg Nicotine (Nicoderm Cq) 1 patch TD DAILY [facility] Last Admin: 07/25/17 09:12 Dose: 1 patch Oxycodone/Acetaminophen (Percocet 5/325 Mg Tab) 1 tab PO Q4H PRN PRN Reason: Pain, severe (8-10) Stop: 07/27/17 11:46 Last Admin: 07/25/17 06:50 Dose: 1 tab Tramadol HCl (Ultram) 50 mg PO TID PRN PRN Reason: Pain, moderate (4-7) - Labs Labs: 07/25/17 07:20 07/25/17 07:20 PT 11.3 SECONDS (9.4-12.5) 07/24/17 00:47 INR 0.99 (0.93-1.08) 07/24/17 00:47 APTT 29.7 Seconds (25.1-36.5) 07/24/17 00:47 - Head Exam Head Exam: ATRAUMATIC, NORMAL INSPECTION, NORMOCEPHALIC - Eye Exam Eye Exam: EOMI, Normal appearance, PERRL Pupil Exam: NORMAL ACCOMODATION - ENT Exam ENT Exam: Mucous Membranes Moist, Normal Oropharynx - Neck Exam Additional comments: s/p i&d. Swelling at the incision site.Dressing is dry with no signs of discharge or drainage. - Respiratory Exam Respiratory Exam: Clear to Ausculation Bilateral, NORMAL BREATHING PATTERN. absent: Prolonged Expiratory Phase, Respiratory Distress - Cardiovascular Exam Cardiovascular Exam: REGULAR RHYTHM, +S1, +S2 - GI/Abdominal Exam GI & Abdominal Exam: Soft, Normal Bowel Sounds. absent: Rigid, Hyperactive Bowel Sounds - Back Exam Back Exam: NORMAL INSPECTION - Neurological Exam Neurological Exam: Alert, Awake, CN II-XII Intact, Normal Gait, Oriented x3 - Psychiatric Exam Psychiatric exam: Normal Affect, Normal Mood - Skin Skin Exam: Dry, Intact Assessment and Plan - Assessment and Plan (Free Text) Assessment: Patient is a 56 year old male with a past medical history of IDDM, and recurring left posterior neck abscess who presents to the ED for reccurence of the neck abscess. Plan: Abscess of left posterior neck * soft tissue neck CT shows peripherally enhancing lesion with surrounding inflammation within posterior neck. Findings compatible with history of abscess. Differential diagnosis may include necrotic lymph node/neoplasm. * status post Incision and Drainage Day #1. Cleared by surgery. Will stay for final culture results before being discharged. * Dr. Thomas consulted - help appreciated * Dr Matta consulted - help appreciated * leukocytosis of 16.3 upon admission. 12 today. Will monitor with serial CBC's. * afebrile * Continue Zosyn 3.375mg Q6 IVP and Vancomycin 1gm Q12 IVPB. * Blood cultures preliminary growing moderate PMN wbc's, moderate Gram positive Cocci in clusters. Will await final reading and sensitivity before being discharged. * Patient afebrile and without a white count * Normocytic Anemia * H&H 13.5 and 39.4 * Patient asymptomatic at this time. * Monitor with morning labs History of DM * Continue home meds * Med dose insulin sliding scale * Accuchecks ACHS * Moderate Consistent Carb Diet * HbA1c 8.6% History of HTN * Continue home meds * Monitor History of HLD * Continue home meds * Triglycerides: 130 * Cholesterol:148 * LDL: 85 * HDL: 40 Dispo: Patient will stay for final cultures and be discharged on oral antibiotics. Discussed plan with Attending Dr. Rufino Smiley, PGY-1
--- NOTE | 2017-07-25 15:33 | CP.PCM.CON ---
History of Present Illness - History of Present Illness History of Present Illness: 56 year old male with PMH of DM, obesity with BMI 38, HTN, dyslipidemia, significant smoking history came in to [facility] [place] complaining of a recurrence of fluid collection on the posterior left side of the neck. He apparently has had this twice since 2016. It was painful and enlarging. He saw his surgeon which tried needle drainage but was unsuccessful and this is why he is admitted. He underwent I and D yesterday and Infectious diseases consult is requested for antibiotic management. He states that the neck feels a little better, no fever or chills, no nausea or vomiting, no chest pain, no SOB, no headache or dizziness, no abdominal pain, no sore throat, no cough or colds, no diarrhea, no dysuria. Review of Systems - Review of Systems All systems: reviewed and no additional remarkable complaints except (as per HPI ) Past Patient History - Infectious Disease Hx of Infectious Diseases: None - Past Medical History & Family History Past Medical History?: Yes Past Family History: Reviewed and not pertinent - Past Social History Smoking Status: Current Some Days Smoker - CARDIAC Hx Pacemaker: No - PULMONARY Hx Respiratory Disorders: No - NEUROLOGICAL Hx Paralysis: No - HEENT Hx HEENT Problems: No - RENAL Hx Chronic Kidney Disease: No - ENDOCRINE/METABOLIC Hx Endocrine Disorders: Yes Hx Diabetes Mellitus Type 2: Yes - HEMATOLOGICAL/ONCOLOGICAL Hx Blood Transfusions: No Hx Blood Transfusion Reaction: No - INTEGUMENTARY Hx Dermatological Problems: No - MUSCULOSKELETAL/RHEUMATOLOGICAL Hx Musculoskeletal Disorders: No - GASTROINTESTINAL Hx Gastrointestinal Disorders: Yes - GENITOURINARY/GYNECOLOGICAL Hx Genitourinary Disorders: No - PSYCHIATRIC Hx Emotional Abuse: No Hx Physical Abuse: No Hx Substance Use: No - SURGICAL HISTORY Other/Comment: ABD SURGERY R/T HERNIA. L Neck abscess I&D x2 - ANESTHESIA Hx Anesthesia: No Hx Anesthesia Reactions: No Hx Malignant Hyperthermia: No Meds Allergies/Adverse Reactions: Allergies Allergy/AdvReac Type Severity Reaction Status Date / Time caffeine AdvReac Intermediate ABDOMINAL Verified 07/24/17 00:15 PAIN - Medications Medications: Current Medications Acetaminophen (Tylenol 325mg Tab) 650 mg PO Q6H PRN PRN Reason: Pain, Mild (1-3) Atorvastatin Calcium (Lipitor) 80 mg PO QAM [facility] Dextrose (Dextrose 50% Inj) 50 ml IVP PRN PRN PRN Reason: Hypoglycemia Ezetimibe (Zetia) 10 mg PO QAM [facility] Glyburide (Micronase) 5 mg PO BID [facility] Vancomycin HCl (Vancomycin 1gm) 1 gm in 250 mls @ 167 mls/hr IVPB DAILY [facility] PRN Reason: Protocol Piperacillin Sod/Tazobactam Sod (Zosyn 3.375 In Ns 100ml) 100 mls @ 200 mls/hr IVPB Q6 [facility] PRN Reason: Protocol Stop: 07/24/17 12:29 Last Admin: 07/24/17 05:57 Dose: 200 mls/hr Lactated Ringer's (Lactated Ringer's) 1,000 mls @ 125 mls/hr IV .Q8H [facility] Last Admin: 07/24/17 04:51 Dose: 125 mls/hr Insulin Detemir (Levemir) 50 unit SC HS [facility] Insulin Human Regular (Humulin R Med) 0 units SC ACHS [facility] PRN Reason: Protocol Lisinopril (Zestril) 10 mg PO QAM [facility] Morphine Sulfate (Morphine) 4 mg IVP Q4H PRN PRN Reason: Pain, severe (8-10) Last Admin: 07/24/17 04:50 Dose: 4 mg Empagliflozin [ Jardiance] 10 Mg ( Home Med) 10 mg PO QAM [facility] Tramadol HCl (Ultram) 50 mg PO TID PRN PRN Reason: Pain, moderate (4-7) Physical Exam - Constitutional Appears: Chronically Ill - Head Exam Head Exam: NORMAL INSPECTION - Neck Exam Neck exam: Negative for: Meningismus Additional comments: posterior neck with dressings in place - Respiratory Exam Respiratory Exam: Decreased Breath Sounds - Cardiovascular Exam Cardiovascular Exam: +S1, +S2 - GI/Abdominal Exam GI & Abdominal Exam: Soft. absent: Tenderness Results - Vital Signs Recent Vital Signs: Last Vital Signs Temp 98.0 F 07/24/17 03:56 Pulse 92 H 07/24/17 03:56 Resp 18 07/24/17 03:56 BP 120/79 07/24/17 03:56 Pulse Ox 98 07/24/17 03:56 - Labs Result Diagrams: 07/25/17 07:20 07/25/17 07:20 Labs: Laboratory Results - last 24 hr 07/24/17 04:02 POC Glucose (mg/dL) 119 H Assessment & Plan - Assessment and Plan (Free Text) Plan: Assessment sepsis due to posterior neck abscess S/P I and D POD #1, growing gram positive cocci and gram negative bacilli DM obesity with BMI 38 HTN dyslipidemia significant smoking history Plan Started Vancomycin and Zosyn pending identification and sensitivities of the gram negative bacilli and gram positive cocci in the abscess will monitor clinically
[2017-07-25] MEDS: Insulin Detemir 100 units/ml Vial (Levemir) SC SCH (22:23)
[2017-07-26] MEDS: Piperacillin/Tazobact 3.375 gm 100 ML IVPB SCH ×3 (00:14→11:52)
--- NOTE | 2017-07-26 07:58 | CP.PCM.PCO ---
Physician Communication Note - Physician Communication Note Physician Communication Note: Last c/s 05/03= Enterococci sens all Ab tested( will bring in today)
[2017-07-26 08:30] LABS: BASO # 0.04 K/mm3 (0.0-2.0); BASO % 0.4 % (0.0-3.0); EOS # 0.4 (0.0-0.7); EOS % 3.4 % (1.5-5.0); GRAN # 5.61 (1.4-6.5); GRAN % 52.8 % (50.0-68.0); HEMOGLOBIN 13.7 g/dL (14.0-18.0); LYMPH # 3.8 (1.2-3.4); LYMPH % 36.1 % (22.0-35.0); MEAN CELL VOLUME 91.8 fl (80.0-105.0); MEAN CORPUSCULAR HEMOGLOBIN 31.2 pg (25.0-35.0); MEAN PLATELET VOLUME 11.4 fl (7.0-11.0); MONO # 0.8 (0.1-0.6); MONO % 7.3 % (1.0-6.0); RBC 4.39 10^6/uL (3.5-6.1); RED CELL DISTRIBUTION WIDTH 13.1 % (11.5-14.5); WHITE BLOOD COUNT 10.6 10^3/ul (4.5-11.0)
[2017-07-26 08:47] LABS: BLOOD UREA NITROGEN 13 mg/dL (7-21); CALCIUM 9.1 mg/dL (8.4-10.5); GFR AFRICAN-AMERICAN > 60; GFR NON-AFRICAN AMERICAN > 60
[2017-07-26] MEDS: Insulin Lispro (humaLOG) LOW Coverage SC SCH ×2 (08:52→11:52)
[2017-07-26 08:56] VITALS: BP 114/83; PULSE 90; RESP 20; TEMP 98.2; O2SAT 97
--- NOTE | 2017-07-26 10:01 | CP.PCM.PN ---
Subjective - Date & Time of Evaluation Date of Evaluation: 07/26/17 Time of Evaluation: 09:59 - Subjective Subjective: General surgery progress note for Dr. Thomas-Luz Arias, PGY-1 Pt S & E at bedside at 0915 Pt reports continued, but improved posterior neck pain. Is ambulating, tolerating diet. Denies N & V, F & C, other complaints. Objective - Vital Signs/Intake and Output Vital Signs (last 24 hours): Temp Pulse Resp BP Pulse Ox 98.2 F 90 20 114/83 97 07/26/17 08:52 07/26/17 08:52 07/26/17 08:52 07/26/17 08:52 07/26/17 08:52 Intake and Output: 07/26/17 07/26/17 06:59 18:59 Intake Total 1140 Balance 1140 - Medications Medications: Current Medications Acetaminophen (Tylenol 325mg Tab) 650 mg PO Q6H PRN PRN Reason: Pain, Mild (1-3) Atorvastatin Calcium (Lip[facility]) [facility] [place] Admin: 07/25/17 09:12 Dose: 80 mg Ezetimibe (Zetia) 10 mg PO QAM [facility] Last Admin: 07/25/17 09:12 Dose: 10 mg Fentanyl (Fentanyl) 25 mcg IV Q5M PRN PRN Reason: Pain, moderate (4-7) Piperacillin Sod/Tazobactam Sod (Zosyn 3.375 In Ns 100ml) 100 mls @ 200 mls/hr IVPB Q6 [facility] PRN Reason: Protocol Stop: 07/31/17 06:01 Last Admin: 07/26/17 05:46 Dose: 200 mls/hr Vancomycin HCl (Vancomycin 1gm) 1 gm in 250 mls @ 167 mls/hr IVPB Q12 [facility] PRN Reason: Protocol Last Admin: 07/25/17 22:23 Dose: 167 mls/hr Insulin Detemir (Levemir) 50 unit SC HS [facility] Last Admin: 07/25/17 22:23 Dose: 50 unit Insulin Human Lispro (Humalog Low) 0 units SC ACHS [facility] PRN Reason: Protocol Last Admin: 07/26/17 08:52 Dose: Not Given Lisinopril (Zestril) 10 mg PO QAM [facility] Last Admin: 07/25/17 09:12 Dose: 10 mg Nicotine (Nicoderm Cq) 1 patch TD DAILY [facility] Last Admin: 07/25/17 09:12 Dose: 1 patch Oxycodone/Acetaminophen (Percocet 5/325 Mg Tab) 1 tab PO Q4H PRN PRN Reason: Pain, severe (8-10) Stop: 07/27/17 11:46 Last Admin: 07/25/17 20:46 Dose: 1 tab Tramadol HCl (Ultram) 50 mg PO TID PRN PRN Reason: Pain, moderate (4-7) - Labs Labs: 07/26/17 08:00 07/26/17 08:00 PT 11.3 SECONDS (9.4-12.5) 07/24/17 00:47 INR 0.99 (0.93-1.08) 07/24/17 00:47 APTT 29.7 Seconds (25.1-36.5) 07/24/17 00:47 - Constitutional Appears: Non-toxic, No Acute Distress - Head Exam Head Exam: ATRAUMATIC, NORMAL INSPECTION, NORMOCEPHALIC - Eye Exam Eye Exam: EOMI, Normal appearance - ENT Exam ENT Exam: Mucous Membranes Moist, Normal Exam - Neck Exam Neck Exam: Tenderness (posterior neck). absent: Normal Inspection Additional comments: Red rubber catheter in place in posterior neck, dressing with moderate amount of serousanguinous saturation. - Respiratory Exam Respiratory Exam: NORMAL BREATHING PATTERN - Cardiovascular Exam Cardiovascular Exam: REGULAR RHYTHM - GI/Abdominal Exam GI & Abdominal Exam: Soft. absent: Distended (obese), Firm, Guarding, Tenderness - Extremities Exam Extremities Exam: Normal Inspection. absent: Tenderness - Back Exam Back Exam: NORMAL INSPECTION - Neurological Exam Neurological Exam: Alert, Awake, CN II-XII Intact, Oriented x3 - Psychiatric Exam Psychiatric exam: Normal Affect, Normal Mood - Skin Skin Exam: Dry, Normal Color, Warm Assessment and Plan - Assessment and Plan (Free Text) Assessment: 56M w/recurrent posterior neck abscess POD#2 s/p I & D of abscess Plan: Cont pain control OOB/ambulate PO Abx Wound dressing changed Dr. Thomas to bring in recent culture sensitivity report for Abx selection Ok to d/c home from surgical standpoint to w/Dr. Thomas next week DW attending [place], PGY-1
[2017-07-26] MEDS: Vancomycin 1gm in NS 250ml 1 GM/250 ML BAG IVPB SCH (10:59)
--- NOTE | 2017-07-26 12:36 | CP.PCM.DIS ---
<Indra Smiley - Last Filed: 07/26/17 12:41> Provider - Provider Date of Admission: 07/24/17 02:35 Attending physician: Demetrius Iglesias Primary care physician: Analy Wilder MD Time Spent in preparation of Discharge (in minutes): 45 Hospital Course - Lab Results Lab Results: Micro Results 07/24/17 12:04 Abscess - Neck-Left Gram Stain - Final 07/24/17 12:04 Abscess - Neck-Left Wound Culture - Final Enterococcus Faecalis Most Recent Lab Values WBC 10.6 10^3/ul (4.5-11.0) 07/26/17 08:00 RBC 4.39 10^6/uL (3.5-6.1) 07/26/17 08:00 Hgb 13.7 g/dL (14.0-18.0) L 07/26/17 08:00 Hct 40.3 % (42.0-52.0) L 07/26/17 08:00 MCV 91.8 fl (80.0-105.0) 07/26/17 08:00 MCH 31.2 pg (25.0-35.0) 07/26/17 08:00 MCHC 34.0 g/dl (31.0-37.0) 07/26/17 08:00 RDW 13.1 % (11.5-14.5) 07/26/17 08:00 Plt Count 208 10^3/uL (120.0-450.0) 07/26/17 08:00 MPV 11.4 fl (7.0-11.0) H 07/26/17 08:00 Gran % 52.8 % (50.0-68.0) 07/26/17 08:00 Lymph % (Auto) 36.1 % (22.0-35.0) H 07/26/17 08:00 Newton % (Auto) 7.3 % (1.0-6.0) H 07/26/17 08:00 Eos % (Auto) 3.4 % (1.5-5.0) 07/26/17 08:00 Baso % (Auto) 0.4 % (0.0-3.0) 07/26/17 08:00 Gran # 5.61 (1.4-6.5) 07/26/17 08:00 Lymph # (Auto) 3.8 (1.2-3.4) H 07/26/17 08:00 Newton # (Auto) 0.8 (0.1-0.6) H 07/26/17 08:00 Eos # (Auto) 0.4 (0.0-0.7) 07/26/17 08:00 Baso # (Auto) 0.04 K/mm3 (0.0-2.0) 07/26/17 08:00 PT 11.3 SECONDS (9.4-12.5) 07/24/17 00:47 INR 0.99 (0.93-1.08) 07/24/17 00:47 APTT 29.7 Seconds (25.1-36.5) 07/24/17 00:47 Sodium 142 mmol/L (132-148) 07/26/17 08:00 Potassium 4.0 mmol/L (3.6-5.0) 07/26/17 08:00 Chloride 104 mmol/L (98-107) 07/26/17 08:00 Carbon Dioxide 27 mmol/L (21-33) 07/26/17 08:00 Anion Gap 16 (10-20) 07/26/17 08:00 BUN 13 mg/dL (7-21) 07/26/17 08:00 Creatinine 0.7 mg/dl (0.8-1.5) L 07/26/17 08:00 Est GFR ( Amer) > 60 07/26/17 08:00 Est GFR (Non-Af Amer) > 60 07/26/17 08:00 POC Glucose (mg/dL) 154 mg/dL (65-110) H 07/26/17 11:28 Random Glucose 126 mg/dL (70-110) H 07/26/17 08:00 Hemoglobin A1c 11.9 % (4.2-6.5) H 07/24/17 07:00 Calcium 9.1 mg/dL (8.4-10.5) 07/26/17 08:00 Phosphorus 4.0 mg/dL (2.5-4.5) 07/24/17 07:00 Magnesium 1.8 mg/dL (1.7-2.2) 07/24/17 07:00 Total Bilirubin 0.4 mg/dL (0.2-1.3) 07/24/17 07:00 AST 24 U/L (17-59) 07/24/17 07:00 ALT 29 U/L (7-56) 07/24/17 07:00 Alkaline Phosphatase 76 U/L (38-126) 07/24/17 07:00 Total Protein 6.6 g/dL (5.8-8.3) 07/24/17 07:00 Albumin 3.6 g/dL (3.0-4.8) 07/24/17 07:00 Globulin 3.0 gm/dL 07/24/17 07:00 Albumin/Globulin Ratio 1.2 (1.1-1.8) 07/24/17 07:00 Triglycerides 130 mg/dL (35-160) 07/24/17 07:00 Cholesterol 148 mg/dL (130-200) 07/24/17 07:00 LDL Cholesterol Direct 85 mg/dL (0-129) 07/24/17 07:00 HDL Cholesterol 40 mg/dL (29-60) 07/24/17 07:00 HIV 1&2 Ag/Ab, 4th Gen Nonreactive (Nonreactive) 07/24/17 08:00 - Hospital Course Hospital Course: Patient is a 56 year old male with a past medical history of IDDM, and recurring left posterior neck abscess who presents to the ED for reccurence of the neck abscess. Patient has had this twice since 2015. Patient says it started hurting him on Thursday so he went to see Dr. Thomas that day, and while there he tried to drain it with a needle but was unsuccessful. Patient says he was told to come back to try again but could not return because he had to work so he started taking an antibiotic yesterday that he cannot recall the name of. Patient says the pain worsened and began to cause him a "migraine headache" starting occipitally and radiating around forwards toward his left ear. He describes the pain as sharp, throbbing, constant, and 10 /10 intensity. He says the pain is worsened when turning his head to the left and nothing makes it better. He admits to associated chills, and dizziness while he was at work today. He otherwise denies fever, changes in vision/hearing , sore throat, numbness/tingling down arms, chest pain, SOB, palpitations, abdominal pain, nausea, vomiting, diarrhea, constipation, changes in urinary habits, and pain in his back or legs. Surgeon: Dr. Thomas PMH: IDDM Allergies: nkda PSH: hiatal hernia repair, I&D x2 of neck abscess with drain on one occasion SH: smokes 1/2 PPD fofr 49 years (since he was 7 years old), denies alcohol or drug use FH: mother and father with DM Hospital Course: Patient was seen and examined by Surgery and determined he would need an Incision and Drainage done. Patient tolerated the procedure well and was continued on IV antibiotics. Patients wound cultures resulted and were positive for Enterococcus facaelis with srivastava sensitivity. Patient was seen and examined determined stable for discharge with the following instructions. Imagin. EKG: Normal sinus rhythm 2. Neck soft tissue CT: shows peripherally enhancing lesion with surrounding inflammation within posterior neck. Findings compatible with history of abscess. Differential diagnosis may also include necrotic lymph node/neoplasm. Discharge Instructions: Ok to shower, covering the dressing to keep it clean and dry. Please follow up with Dr. Thomas in the office for evaluation of wound next week. The red rubber catheter will stay in place until evaluation of wound by Dr. Thomas. You may change the dressing at home as needed. Please complete a course of antibiotics as prescribed. Please return to hospital if you have a recurrence of symptoms. 1. F/u with Dr. Thomas tomorrow in office. 2. Return to hospital for any new or worsening symptoms. Discharge Exam - Head Exam Head Exam: ATRAUMATIC, NORMAL INSPECTION, NORMOCEPHALIC Discharge Plan - Discharge Medications Prescriptions: Amoxicillin/Clavulanate [Augmentin 875 MG-125 MG] 1 tab PO BID #14 tab - Follow Up Plan Condition: FAIR Disposition: HOME/ ROUTINE Instructions: Skin Abscess, Surgical Wound (DC), Abscess Incision and Drainage (DC), Cellulitis (Skin Infection), Adult (DC), Wound Incision and Drainage (DC) Additional Instructions: Ok to shower, covering the dressing to keep it clean and dry. Please follow up with Dr. Thomas in the office for evaluation of wound next week. The red rubber catheter will stay in place until evaluation of wound by Dr. Thomas. You may change the dressing at home as needed. Please complete a course of antibiotics as prescribed. Please return to hospital if you have a recurrence of symptoms. 1. F/u with Dr. Thomas tomorrow in office. 2. Return to hospital for any new or worsening symptoms. Referrals: Analy Redmond MD [Primary Care Provider] - Sherman Thomas MD [Staff Provider] - <Yrn Joy - Last Filed: 07/26/17 22:00> Provider - Provider Date of Admission: 07/24/17 02:35 Attending physician: Demetrius Iglesias Primary care physician: Analy Wilder MD Hospital Course - Lab Results Lab Results: Micro Results 07/24/17 12:04 Abscess - Neck-Left Gram Stain - Final 07/24/17 12:04 Abscess - Neck-Left Wound Culture - Final Enterococcus Faecalis Most Recent Lab Values WBC 10.6 10^3/ul (4.5-11.0) 07/26/17 08:00 RBC 4.39 10^6/uL (3.5-6.1) 07/26/17 08:00 Hgb 13.7 g/dL (14.0-18.0) L 07/26/17 08:00 Hct 40.3 % (42.0-52.0) L 07/26/17 08:00 MCV 91.8 fl (80.0-105.0) 07/26/17 08:00 MCH 31.2 pg (25.0-35.0) 07/26/17 08:00 MCHC 34.0 g/dl (31.0-37.0) 07/26/17 08:00 RDW 13.1 % (11.5-14.5) 07/26/17 08:00 Plt Count 208 10^3/uL (120.0-450.0) 07/26/17 08:00 MPV 11.4 fl (7.0-11.0) H 07/26/17 08:00 Gran % 52.8 % (50.0-68.0) 07/26/17 08:00 Lymph % (Auto) 36.1 % (22.0-35.0) H 07/26/17 08:00 Newton % (Auto) 7.3 % (1.0-6.0) H 07/26/17 08:00 Eos % (Auto) 3.4 % (1.5-5.0) 07/26/17 08:00 Baso % (Auto) 0.4 % (0.0-3.0) 07/26/17 08:00 Gran # 5.61 (1.4-6.5) 07/26/17 08:00 Lymph # (Auto) 3.8 (1.2-3.4) H 07/26/17 08:00 Newton # (Auto) 0.8 (0.1-0.6) H 07/26/17 08:00 Eos # (Auto) 0.4 (0.0-0.7) 07/26/17 08:00 Baso # (Auto) 0.04 K/mm3 (0.0-2.0) 07/26/17 08:00 PT 11.3 SECONDS (9.4-12.5) 07/24/17 00:47 INR 0.99 (0.93-1.08) 07/24/17 00:47 APTT 29.7 Seconds (25.1-36.5) 07/24/17 00:47 Sodium 142 mmol/L (132-148) 07/26/17 08:00 Potassium 4.0 mmol/L (3.6-5.0) 07/26/17 08:00 Chloride 104 mmol/L (98-107) 07/26/17 08:00 Carbon Dioxide 27 mmol/L (21-33) 07/26/17 08:00 Anion Gap 16 (10-20) 07/26/17 08:00 BUN 13 mg/dL (7-21) 07/26/17 08:00 Creatinine 0.7 mg/dl (0.8-1.5) L 07/26/17 08:00 Est GFR ( Amer) > 60 07/26/17 08:00 Est GFR (Non-Af Amer) > 60 07/26/17 08:00 POC Glucose (mg/dL) 154 mg/dL (65-110) H 07/26/17 11:28 Random Glucose 126 mg/dL (70-110) H 07/26/17 08:00 Hemoglobin A1c 11.9 % (4.2-6.5) H 07/24/17 07:00 Calcium 9.1 mg/dL (8.4-10.5) 07/26/17 08:00 Phosphorus 4.0 mg/dL (2.5-4.5) 07/24/17 07:00 Magnesium 1.8 mg/dL (1.7-2.2) 07/24/17 07:00 Total Bilirubin 0.4 mg/dL (0.2-1.3) 07/24/17 07:00 AST 24 U/L (17-59) 07/24/17 07:00 ALT 29 U/L (7-56) 07/24/17 07:00 Alkaline Phosphatase 76 U/L (38-126) 07/24/17 07:00 Total Protein 6.6 g/dL (5.8-8.3) 07/24/17 07:00 Albumin 3.6 g/dL (3.0-4.8) 07/24/17 07:00 Globulin 3.0 gm/dL 07/24/17 07:00 Albumin/Globulin Ratio 1.2 (1.1-1.8) 07/24/17 07:00 Triglycerides 130 mg/dL (35-160) 07/24/17 07:00 Cholesterol 148 mg/dL (130-200) 07/24/17 07:00 LDL Cholesterol Direct 85 mg/dL (0-129) 07/24/17 07:00 HDL Cholesterol 40 mg/dL (29-60) 07/24/17 07:00 HIV 1&2 Ag/Ab, 4th Gen Nonreactive (Nonreactive) 07/24/17 08:00 Attending/Attestation - Attestation I have personally seen and examined this patient.: Yes I have fully participated in the care of the patient.: Yes I have reviewed all pertinent clinical information, including history, physical exam and plan: Yes Notes (Text): 07/26/17 22:00 pateint tami nd examined at bedside. Labs, vitals, cultures reviewed. Case D/W ID service. Agree with the plan of care outlined by the resident.
--- NOTE | 2017-07-26 13:52 | CP.PCM.PN ---
Subjective - Date & Time of Evaluation Date of Evaluation: 07/26/17 Time of Evaluation: 12:05 - Subjective Subjective: No fevers, not in distress, neck pain is improved. Objective - Vital Signs/Intake and Output Vital Signs (last 24 hours): Temp Pulse Resp BP Pulse Ox 98.8 F 87 18 113/74 98 07/25/17 22:00 07/25/17 22:00 07/25/17 22:00 07/25/17 22:00 07/25/17 22:00 Intake and Output: 07/26/17 07/26/17 06:59 18:59 Intake Total 1140 Balance 1140 - Medications Medications: Current Medications Acetaminophen (Tylenol 325mg Tab) 650 mg PO Q6H PRN PRN Reason: Pain, Mild (1-3) Atorvastatin Calcium (Lipitor) 80 [facility] [place] Last Admin: 07/25/17 09:12 Dose: 80 mg Ezetimibe (Zetia) 10 mg PO QAWW [facility] [place] Last Admin: 07/25/17 09:12 Dose: 10 mg Fentanyl (Fentanyl) 25 mcg IV Q5M PRN PRN Reason: Pain, moderate (4-7) Piperacillin Sod/Tazobactam Sod (Zosyn 3.375 In Ns 100ml) 100 mls @ 200 mls/hr IVPB Q6 [facility] PRN Reason: Protocol Stop: 07/31/17 06:01 Last Admin: 07/26/17 05:46 Dose: 200 mls/hr Vancomycin HCl (Vancomycin 1gm) 1 gm in 250 mls @ 167 mls/hr IVPB Q12 [facility] PRN Reason: Protocol Last Admin: 07/25/17 22:23 Dose: 167 mls/hr Insulin Detemir (Levemir) 50 unit SC HS [facility] Last Admin: 07/25/17 22:23 Dose: 50 unit Insulin Human Lispro (Humalog Low) 0 units SC ACHS [facility] PRN Reason: Protocol Last Admin: 07/25/17 22:19 Dose: Not Given Lisinopril (Zestril) 10 mg PO [facility]AW[facility] [place] Last Admin: 07/25/17 09:12 Dose: 10 mg Nicotine (Nicoderm Cq) 1 patch TD DAILY [facility] Last Admin: 07/25/17 09:12 Dose: 1 patch Oxycodone/Acetaminophen (Percocet 5/325 Mg Tab) 1 tab PO Q4H PRN PRN Reason: Pain, severe (8-10) Stop: 07/27/17 11:46 Last Admin: 07/25/17 20:46 Dose: 1 tab Tramadol HCl (Ultram) 50 mg PO TID PRN PRN Reason: Pain, moderate (4-7) - Labs Labs: 07/25/17 07:20 07/25/17 07:20 PT 11.3 SECONDS (9.4-12.5) 07/24/17 00:47 INR 0.99 (0.93-1.08) 07/24/17 00:47 APTT 29.7 Seconds (25.1-36.5) 07/24/17 00:47 - Constitutional Appears: Non-toxic, Chronically Ill - Head Exam Head Exam: NORMAL INSPECTION - Neck Exam Neck Exam: absent: Meningismus Additional comments: posterior neck with dressings in place - Respiratory Exam Respiratory Exam: Decreased Breath Sounds - Cardiovascular Exam Cardiovascular Exam: +S1, +S2 - GI/Abdominal Exam GI & Abdominal Exam: Soft. absent: Tenderness Assessment and Plan - Assessment and Plan (Free Text) Plan: Assessment sepsis due to posterior neck abscess S/P I and D POD #2, E. faecalis DM obesity with BMI 38 HTN dyslipidemia significant smoking history Plan can switch patient to Augmentin to complete another 7 days of therapy with outpatient follow up with Surgery discussed with Dr. Thomas and Dr. Joy
== END 2017-07-26 14:19 | disposition home or self-care (01) | DRG 278 ==
LOC: ED 23:05 → ERH 07-24 02:35 → 5RSO 07-24 04:02
PROVIDERS: ADMIT Hospitalist; ATTEND Hospitalist
PROC: 0J950ZX Drainage of Left Neck Subcutaneous Tissue and Fascia, Open Approach, Diagnostic (ICD-10-PCS; principal; 2017-07-24 10:30)
DX: L02.11 Cutaneous abscess of neck (principal); L03.221 Cellulitis of neck; I10 Essential (primary) hypertension; E11.9 Type 2 diabetes mellitus without complications; B95.2 Enterococcus as the cause of diseases classified elsewhere; E78.5 Hyperlipidemia, unspecified; F17.210 Nicotine dependence, cigarettes, uncomplicated; G43.909 Migraine, unspecified, not intractable, without status migrainosus; D64.9 Anemia, unspecified; E66.9 Obesity, unspecified; Z68.38 Body mass index [BMI] 38.0-38.9, adult; Z79.4 Long term (current) use of insulin; Z83.3 Family history of diabetes mellitus

== ENCOUNTER 2018-01-05 07:28 | Day surgery (SDC) | payer MEDICAID ==
[2018-01-05 08:05] VITALS: TEMP 98
[2018-01-05] MEDS ORDERED: Bupivacaine 0.5% 50 ML IJ ONE (10:23)
[2018-01-05] MEDS ORDERED: Midazolam 2 MG/2 ML VIAL ONE (10:39)
[2018-01-05] MEDS ORDERED: Propofol 10 mg/ml Inj (20 ML) ONE (10:39)
[2018-01-05] MEDS ORDERED: Succinylcholine 200 mg/10 ml Inj IV ONE (10:48)
[2018-01-05] MEDS ORDERED: Phenylephrine 10 mg/ml Inj ONE (11:07)
[2018-01-05] MEDS ORDERED: Bupivacaine 0.5% Inj(30mL) IJ ONE (11:21)
[2018-01-05] MEDS ORDERED: HYDROmorphone 0.5 mg/0.5 ml ISec IVP PRN (11:59)
[2018-01-05] MEDS ORDERED: Lactated Ringer's 1,000 ML IV SCH (12:00)
--- NOTE | 2018-01-05 12:04 | PCM.SURG1 ---
Surgeon's Initial Post Op Note - Surgeon's Notes Surgeon: Dr. Thomas Flight Steward: Dr. House Type of Anesthesia: General Endo, Local (Bupivicaine) Pre-Operative Diagnosis: Left Posterior Neck Recurring Abscess Operative Findings: see operative dictation Post-Operative Diagnosis: Same Operation Performed: Wide and deep excision/debridement of recurring left sided posterior neck abscess Specimen/Specimens Removed: soft tissue Estimated Blood Loss: EBL {In ML}: 10 Blood Products Given: N/A Drains Used: [place] (26Fr govea) Post-Op Condition: Good Date of Surgery/Procedure: 01/05/18 Time of Surgery/Procedure: 12:04
[2018-01-05] MEDS ORDERED: TraMADol/Apap 37.5/325 mg Tab PO PRN (12:06)
[2018-01-05 12:44] VITALS: O2SAT 98
[2018-01-05 13:14] VITALS: BP 134/84; PULSE 75; RESP 20
[2018-01-05 13:29] VITALS: BMI 37.5
--- NOTE | 2018-01-13 01:48 | OP ---
PROCEDURE DATE: 01/05/2018 SURGEON: Sherman Thomas MD HYDROMETEOROLOGY TEACHER: Judd House DO, PGY-1 CALLIOPE PLAYER: Simon Perez MD ANESTHESIA: General endotracheal - Marcaine 0.5% - 18 mL. PREOPERATIVE DIAGNOSES: 1. 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 2. Insulin-dependent diabetes mellitus. 3. Morbid obesity. POSTOPERATIVE DIAGNOSES: 1. 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 2. Insulin-dependent diabetes mellitus. 3. Morbid obesity. PROCEDURES: 1. Wide and deep debridement of the left posterior neck recurring abscesses. 2. Intermediate layered closure, 6 cm. OPERATIVE INDICATION: The patient is a 57-year-old male with an 8-month history of recurring Strep G abscess of his left neck posteriorly that has been drained on several occasions but continues to recur. It is completely sensitive to penicillin and ampicillin, but continues recurring despite wide drainage and chronic long-term catheter placement to facilitate the drainage. At this point, the patient was described to have a wide local excision under general anesthesia, and he understands the risks, the benefits and the alternatives with their anticipated outcomes. OPERATIVE NOTE: The patient is brought to the operating room. He is identified by his wristband. He undergoes time-out procedure and undergoes the induction of general anesthesia and insertion of an endotracheal tube. Sequential compression devices are placed in his lower extremities. He is placed in a semi-Howe's position and rolled to the right side and supported with wide adhesive tape. The posterior neck and area are prepped with Betadine, and the patient is aseptically draped. Infiltration of the area is employed in a field block manner with long-acting bupivacaine and a large ellipse of skin and subcutaneous tissue is made with the cautery scalpel down to the level of the abscess deep above the trapezius muscle. The entire area is now widely excised completely evacuating the entire chronic inflammatory mass, and cultures are taken aerobically and anaerobically. Hemostasis is contained with cautery. The wound is now lavaged with saline, aspirated and hemostasis confirmed. A 26-Hebrew catheter is placed in the incision, secured to the skin with 2-0 Prolene suture. The skin is closed with retention skyler sutures of the same 2-0 Prolene approximating the skin edge. A dry dressing is applied. The patient is awakened, extubated and transported to the recovery room in a satisfactory condition. Sponge, instrument, suture count were verified as correct at the end of the procedure. Estimated blood loss during this procedure was less than 20 mL of blood. Sherman Thomas MD
== END 2018-01-05 14:40 | disposition home or self-care (01) ==
LOC: SDS 07:28
PROVIDERS: ATTEND Surgery
DX: L02.11 Cutaneous abscess of neck (principal); B95.1 Streptococcus, group B, as the cause of diseases classified elsewhere; I10 Essential (primary) hypertension; E11.9 Type 2 diabetes mellitus without complications; G47.33 Obstructive sleep apnea (adult) (pediatric); Z68.35 Body mass index [BMI] 35.0-35.9, adult; E66.01 Morbid (severe) obesity due to excess calories; Z79.4 Long term (current) use of insulin
CPT/HCPCS: 11042; 12042; 82948; 87070; 88304; J0330; J0690; J1170; J1885; J2250; J2370; J2704; J3010; J7120 ×2

== ENCOUNTER 2018-05-15 21:26 | Emergency (ER) | payer MEDICAID ==
[2018-05-15 21:52] VITALS: BP 123/87; PULSE 98; RESP 18; TEMP 98.5; O2SAT 95; BMI 36.0
[2018-05-15] MEDS ORDERED: Tetracaine 0.5% Ophth 2 ML BOTTLE OS STA (22:17)
--- NOTE | 2018-05-15 22:22 | ED PDOC ---
Arrival/HPI - General Chief Complaint: Eye Problem Time Seen by Provider: 05/15/18 21:51 Historian: Patient - History of Present Illness Narrative History of Present Illness (Text): 05/15/18 22:13 A 57 year old male, whose past medical history includes diabetes and glaucoma, presents to the ED with a complaint of left eye redness and swelling. Patient reports he was prescribed Latonoprost eye drops by his email deployment specialist prior to Thursday appointment for L eye laser treatment for glaucoma. Patient took the drops in his left eye only on the at night before going to bed. Patient noticed left eye swelling the next morning. Patient was subsequently prescribed Tobramycin by his PMD and referred to the ED if symptoms did not improve. Patient notes Tobramycin slightly improved symptoms, but eye remains itchy and feels like "it is about to pop out." Patient is due to see his Help Desk Operator in 2 days. Patient denies fevers, chills, headache, dizziness, chest pain, shortness of breath, dyspnea on exertion, cough, abdominal pain, nausea, vomiting, diarrhea, back pain, neck pain, urinary/bowel changes, or any other complaint. PMD: Dr. Resendez Opthalmologist: Dr. Chaudhari Time/Duration: Other (2 days) Symptom Course: Improving Activities at Onset: Light Context: Home Past Medical History - Provider Review Nursing Documentation Reviewed: Yes - Infectious Disease Hx of Infectious Diseases: None - Cardiac Hx Pacemaker: No - Pulmonary Hx Respiratory Disorders: No - Neurological Hx Paralysis: No - HEENT Hx Cataracts: Yes - Renal Hx Renal Disorder: No - Endocrine/Metabolic Hx Endocrine Disorders: Yes Hx Diabetes Mellitus Type 2: Yes - Hematological/Oncological Hx Blood Transfusions: No Hx Blood Transfusion Reaction: No - Integumentary Hx Dermatological Disorder: No - Musculoskeletal/Rheumatological Hx Musculoskeletal Disorders: No - Gastrointestinal Hx Gastrointestinal Disorders: Yes - Genitourinary/Gynecological Hx Genitourinary Disorders: No - Psychiatric Hx Psychophysiologic Disorder: No Hx Emotional Abuse: No Hx Physical Abuse: No Hx Substance Use: No - Surgical History Other/Comment: cataract surgery to right eye 05/13/2018 - Anesthesia Hx Anesthesia Reactions: No Hx Malignant Hyperthermia: No - Suicidal Assessment Feels Threatened In Home Enviroment: No Family/Social History - Physician Review Nursing Documentation Reviewed: Yes Family/Social History: Unknown Family HX Smoking Status: Current Some Days Smoker Hx Alcohol Use: No Hx Substance Use: No Allergies/Home Meds Allergies/Adverse Reactions: Allergies caffeine Adverse Reaction (Intermediate, Verified 07/24/17 00:15) ABDOMINAL PAIN Home Medications: Home Meds Medication Instructions Recorded Confirmed Atorvastatin [Lipitor] 80 mg PO QAM 03/05/15 01/05/18 Empagliflozin [Jardiance] 10 mg PO QAM 04/14/17 01/05/18 Ezetimibe [Zetia] 10 mg PO QAM 04/14/17 01/05/18 Glyburide/Metformin HCl 1 each PO BID 04/14/17 01/05/18 [Glyburide-Metformin 5-500 mg] Lisinopril [Zestril] 10 mg PO QAM 04/14/17 01/05/18 Insulin Glargine,Hum.rec.anlog 50 unit SQ HS 12/29/17 01/05/18 [Basaglar Kwikpen U-100] Tramadol HCl/Acetaminophen 1 tab PO TID 12/29/17 01/05/18 [Acetaminophen-Tramadol HCl 325 mg-37.5 mg] AMPicillin [Ampicillin] 500 mg PO QID 01/05/18 01/05/18 Review of Systems - Physician Review All systems were reviewed & negative as marked: Yes - Review of Systems Gastrointestinal: absent: Nausea Neurological: absent: Headache Physical Exam - Physical Exam Narrative Physical Exam (Text): 05/15/18 22:24 Constitutional: No acute distress. Head: Normocephalic. Atraumatic. Eyes: Periorbital edema. Pupil reactive. No erythema or pain with extraocular movements. IOP 15 x 3 measurements. Purulent discharge. Conjunctiva injected. ENT: Moist mucous membranes. Neck: Supple. Cardiovascular: Regular rate. Chest: No tenderness. Respiratory: Clear to auscultation bilaterally. GI: Soft. Nontender. Nondistended. Back: No CVA tenderness. Musculoskeletal: No tenderness or swelling of extremities. Skin: No rash. Neurologic: Alert, no focal deficit. Vital Signs Reviewed: Yes Vital Signs Temp Pulse Resp BP Pulse Ox 05/15/18 21:40 98.5 F 98 H 18 123/87 95 Temperature: Afebrile Blood Pressure: Normal Pulse: Regular Respiratory Rate: Normal Appearance: Positive for: Well-Appearing, Non-Toxic, Comfortable Mental Status: Positive for: Alert and Oriented X 3 Medical Decision Making ED Course and Treatment: 05/15/18 22:28 Impression: A 57 year old male who presents to the ED for left eye redness and swelling for the past 2 days. Plan: -- Tetracaine -- Reassess and disposition Prior Visits: Notes and results from previous visits were reviewed. Progress Notes: 05/15/18 22:[address] Cole who recommends d/c latanoprost, change tobramycin to tobradex, f/u in office Thursday. - Scribe Statement The provider has reviewed the documentation as recorded by the Joshibe Michelle Rivera training under Estella Mclaughlin Provider Scribe Attestation: All medical record entries made by the Scribe were at my direction and personally dictated by me. I have reviewed the chart and agree that the record accurately reflects my personal performance of the history, physical exam, medical decision making, and the department course for this patient. I have also personally directed, reviewed, and agree with the discharge instructions and disposition. Disposition/Present on Arrival - Present on Arrival Any Indicators Present on Arrival: No History of DVT/PE: No History of Uncontrolled Diabetes: No Urinary Catheter: No History of Decub. Ulcer: No History Surgical Site Infection Following: None - Disposition Have Diagnosis and Disposition been Completed?: Yes Diagnosis: Eye inflammation Disposition: HOME/ ROUTINE Disposition Time: 22:30 Patient Plan: Discharge Condition: GOOD Discharge Instructions (ExitCare): Conjunctivitis ([place]) (DC) Prescriptions: Dexamethasone/Tobramycin [Tobradex Opht Susp] 1 drop OS QID #1 bottle Referrals: Karson Chaudhari MD [Staff Provider] - Follow up with primary Forms: [employer] (Eth[place]ian)
== END 2018-05-16 00:40 | disposition home or self-care (01) ==
LOC: ED 21:26
DX: H01.9 Unspecified inflammation of eyelid (principal); E11.9 Type 2 diabetes mellitus without complications; H40.9 Unspecified glaucoma

== ENCOUNTER 2018-05-25 10:04 | Inpatient (IN) | payer MEDICAID ==
[2018-05-25 10:56] VITALS: BMI 36.1
[2018-05-25] MEDS ORDERED: Sodium Chloride 0.9% 1,000 ML IV STA (11:06)
--- NOTE | 2018-05-25 11:14 | ED PDOC ---
Arrival/HPI - General Chief Complaint: Abnormal Skin Integrity Time Seen by Provider: 05/25/18 10:25 Historian: Patient - History of Present Illness Narrative History of Present Illness (Text): 05/25/18 11:10 57-year-old male presents today with 2-3-day history of posterior neck pain swelling redness and warmth and subjective fevers. Patient states that he has a history of multiple abscesses in the back of the neck that have been drained by Dr. Thomas. Patient states he spoke with Dr. Thomas that due to the significant swelling and pain to the posterior neck and he was advised to come into the emergency room for evaluation. Patient is complaining of pain swelling and redness to the posterior neck similar to the 6 times in the past that he has had large abscess to the neck. Past Medical History - Provider Review Nursing Documentation Reviewed: Yes - Travel History Have you recently traveled outside [place] w/in the past 3 mons?: No - Infectious Disease Hx of Infectious Diseases: None - Cardiac Hx Pacemaker: No - Pulmonary Hx Respiratory Disorders: No - Neurological Hx Paralysis: No - HEENT Hx Cataracts: Yes - Renal Hx Renal Disorder: No - Endocrine/Metabolic Hx Endocrine Disorders: Yes Hx Diabetes Mellitus Type 2: Yes - Hematological/Oncological Hx Blood Transfusions: No Hx Blood Transfusion Reaction: No - Integumentary Hx Dermatological Disorder: No - Musculoskeletal/Rheumatological Hx Musculoskeletal Disorders: No - Gastrointestinal Hx Gastrointestinal Disorders: Yes - Genitourinary/Gynecological Hx Genitourinary Disorders: No - Psychiatric Hx Psychophysiologic Disorder: No Hx Emotional Abuse: No Hx Physical Abuse: No Hx Substance Use: No - Surgical History Other/Comment: cataract surgery to right eye 05/13/2018 - Anesthesia Hx Anesthesia: Yes Hx Anesthesia Reactions: No Hx Malignant Hyperthermia: No - Suicidal Assessment Feels Threatened In Home Enviroment: No Family/Social History - Physician Review Nursing Documentation Reviewed: Yes Family/Social History: Unknown Family HX Smoking Status: Current Some Days Smoker Hx Alcohol Use: No Hx Substance Use: No Allergies/Home Meds Allergies/Adverse Reactions: Allergies caffeine Adverse Reaction (Intermediate, Verified 05/25/18 11:07) ABDOMINAL PAIN Home Medications: Home Meds Medication Instructions Recorded Confirmed Atorvastatin [Lipitor] 80 mg PO QAM 03/05/15 01/05/18 Empagliflozin [Jardiance] 10 mg PO QAM 04/14/17 01/05/18 Ezetimibe [Zetia] 10 mg PO QAM 04/14/17 01/05/18 Glyburide/Metformin HCl 1 each PO BID 04/14/17 01/05/18 [Glyburide-Metformin 5-500 mg] Lisinopril [Zestril] 10 mg PO QAM 04/14/17 01/05/18 Insulin Glargine,Hum.rec.anlog 50 unit SQ HS 12/29/17 01/05/18 [Basaglar Swatiikpen U-100] Tramadol HCl/Acetaminophen 1 tab PO TID 12/29/17 01/05/18 [Acetaminophen-Tramadol HCl 325 mg-37.5 mg] AMPicillin [Ampicillin] 500 mg PO QID 01/05/18 01/05/18 Review of Systems - Review of Systems Constitutional: absent: Fatigue, Fevers Respiratory: absent: SOB, Cough Cardiovascular: absent: Chest Pain, Palpitations Gastrointestinal: absent: Abdominal Pain, Nausea, Vomiting Genitourinary Male: absent: Dysuria, Hematuria Musculoskeletal: Neck Pain Skin: Abscess, Cellulitis Neurological: Headache. absent: Dizziness Psychiatric: absent: Anxiety, Depression Physical Exam Vital Signs Reviewed: Yes Vital Signs Temp Pulse Resp BP Pulse Ox 05/25/18 10:56 98.6 F 115 H 20 101/68 99 Temperature: Afebrile Blood Pressure: Normal Pulse: Tachycardic Respiratory Rate: Normal Appearance: Positive for: Well-Appearing, Non-Toxic, Comfortable Pain Distress: None Mental Status: Positive for: Alert and Oriented X 3 - Systems Exam Head: Present: Tenderness (+ tenderness/swelling to posterior neck), Swelling Mouth: Present: Moist Mucous Membranes Nose (External): Present: Atraumatic Neck: Present: Other (there is significant swelling to posterior neck. + erythema, + warmth/ + induration, large keloid noted to left side of posterior neck; no visualized purulent discharge. ). No: Normal Range of Motion Respiratory/Chest: Present: Clear to Auscultation Cardiovascular: Present: Regular Rate and Rhythm Neurological: Present: GCS=15, Speech Normal Skin: Present: Warm, Dry Psychiatric: Present: Alert, Oriented x 3 Medical Decision Making ED Course and Treatment: 05/25/18 11:14 57yr old diabetic male with recurrently neck abscess cbc: wbc; 12.5 cmp: glucose; [address] neck: FINDINGS: NASOPHARYNX: There is severe adenoid hypertrophy with mild narrowing of the nasopharyngeal airway. SUPRAHYOID NECK: Bilateral palatine tonsils are enlarged. There is a small tonsillolith on the right. No mass or abnormal enhancement in the oropharynx, oral cavity, parapharyngeal space and retropharyngeal space. INFRAHYOID NECK: No mass or abnormal enhancement in the larynx, hypopharynx, and supraglottic space. Vocal cords intact. MASS: None. GLANDS: Parotid and submandibular glands unremarkable. Normal size thyroid gland, without nodule. LYMPH NODES: There are mildly enlarged left cervical chain lymph nodes including posterior triangle lymph nodes, likely reactive. CERVICAL SPINE: No fracture or focal lesion. VASCULAR STRUCTURES: Unremarkable. OTHER FINDINGS: There is an approximately 3.3 x 2.5 cm low-attenuation area with surrounding irregular enhancing rim and surrounding significant inflammatory fat stranding in the subcutaneous tissues of the left posterior occipital scalp and upper neck there is also associated diffuse skin thickening in the posterior scalp. IMPRESSION: 1. Approximately 3.3 x 2.5 cm phlegmon/developing abscess in the subcutaneous tissues of the left posterior occipital scalp/upper neck with associated cellulitis. 2. Moderate adenoid hypertrophy and enlarged bilateral palatine tonsils. vanco and zosyn oredered IV 05/25/18 14:[address] davi thomas in depth; advised admit to his service. pending surgery tomorrow. all results discussed with patient in depth. All aspects of this case were discussed the attending of record. impression; abscess, phlegmon admit med/surg - RAD Interpretation Radiology Orders: 05/25/18 11:06 NECK SOFT TISSUE W/CONTRAST [CT] Stat - Medication Orders Current Medication Orders: Sodium Chloride (Sodium Chloride 0.9%) 1,000 mls @ 999 mls/hr IV .Q1H1M STA Stop: 05/25/18 12:06 Discontinued Medications Ketorolac Tromethamine (Toradol) 30 mg IVP STAT STA Stop: 05/25/18 11:07 Disposition/Present on Arrival - Present on Arrival Any Indicators Present on Arrival: No History of DVT/PE: No History of Uncontrolled Diabetes: No Urinary Catheter: No History of Decub. Ulcer: No History Surgical Site Infection Following: None - Disposition Have Diagnosis and Disposition been Completed?: Yes Diagnosis: Phlegmon, Abscess of neck Disposition: HOSPITALIZED Disposition Time: 13:10 Patient Plan: Admission Condition: FAIR
[2018-05-25 11:53] LABS: BASO # 0.03 K/mm3 (0.0-2.0); BASO % 0.2 % (0.0-3.0); EOS # 0.2 (0.0-0.7); EOS % 1.6 % (1.5-5.0); HEMOGLOBIN 14.9 g/dL (14.0-18.0); LYMPH # 3.6 (1.2-3.4); LYMPH % 28.9 % (22.0-35.0); MEAN CELL VOLUME 93.4 fl (80.0-105.0); MEAN CORPUSCULAR HEMOGLOBIN 31.5 pg (25.0-35.0); MEAN CORPUSCULAR HGB CONC 33.7 g/dl (31.0-37.0); MEAN PLATELET VOLUME 11.3 fl (7.0-11.0); MONO # 0.8 (0.1-0.6); MONO % 6.4 % (1.0-6.0); RBC 4.73 10^6/uL (3.5-6.1); RED CELL DISTRIBUTION WIDTH 13.2 % (11.5-14.5); WHITE BLOOD COUNT 12.5 10^3/uL (4.5-11.0)
[2018-05-25 11:57] LABS: ALB/GLOB RATIO 1.1 (1.1-1.8); ALBUMIN 3.6 g/dL (3.0-4.8); ALT/SGPT 27 U/L (7-56); AST/SGOT 22 U/L (17-59); BLOOD UREA NITROGEN 14 mg/dL (7-21); CALCIUM 8.7 mg/dL (8.4-10.5); GFR NON-AFRICAN AMERICAN > 60
[2018-05-25] MEDS ORDERED: Iohexol 350 MG/100 ML VIAL ONE (12:26)
--- NOTE | 2018-05-25 13:49 | CT ---
Date of service: 05/25/2018 PROCEDURE: CT NECK WITH CONTRAST HISTORY: posterior neck pain/swelling hx of abscess COMPARISON: None available. TECHNIQUE: CT of the neck with intravenous contrast. Coronal and sagittal reformats generated. Intravenous contrast dose: 100 mL Omnipaque 350 Radiation dose: Total exam DLP = 559.28 mGy-cm. This CT exam was performed using one or more of the following dose reduction techniques: Automated exposure control, adjustment of the mA and/or kV according to patient size, and/or use of iterative reconstruction technique. FINDINGS: NASOPHARYNX: There is severe adenoid hypertrophy with mild narrowing of the nasopharyngeal airway. SUPRAHYOID NECK: Bilateral palatine tonsils are enlarged. There is a small tonsillolith on the right. No mass or abnormal enhancement in the oropharynx, oral cavity, parapharyngeal space and retropharyngeal space. INFRAHYOID NECK: No mass or abnormal enhancement in the larynx, hypopharynx, and supraglottic space. Vocal cords intact. MASS: None. GLANDS: Parotid and submandibular glands unremarkable. Normal size thyroid gland, without nodule. LYMPH NODES: There are mildly enlarged left cervical chain lymph nodes including posterior triangle lymph nodes, likely reactive. CERVICAL SPINE: No fracture or focal lesion. VASCULAR STRUCTURES: Unremarkable. OTHER FINDINGS: There is an approximately 3.3 x 2.5 cm low-attenuation area with surrounding irregular enhancing rim and surrounding significant inflammatory fat stranding in the subcutaneous tissues of the left posterior occipital scalp and upper neck there is also associated diffuse skin thickening in the posterior scalp. IMPRESSION: 1. Approximately 3.3 x 2.5 cm phlegmon/developing abscess in the subcutaneous tissues of the left posterior occipital scalp/upper neck with associated cellulitis. 2. Moderate adenoid hypertrophy and enlarged bilateral palatine tonsils.
[2018-05-25] MEDS ORDERED: Vancomycin 1gm in NS 250ml 1 GM/250 ML BAG IVPB STA (14:10)
[2018-05-25] MEDS ORDERED: Piperacillin/Tazobact 3.375 gm 100 ML IVPB STA (14:10)
[2018-05-25] MEDS ORDERED: Morphine 4 mg/ml ISec IVP STA (14:37)
--- NOTE | 2018-05-25 15:14 | CP.PCM.HP ---
History of Present Illness - History of Present Illness History of Present Illness: General surgery H & P for Dr. Thomas-Luz Arias, PGY-2 Pt seen/examined at bedside. 57M w/PMH sig for recurrent left posterior neck abscesses requiring incision and drainage admitted for the same. Pt reports noticing increasing swelling of left posterior neck over the past 3 days. Admits to subjective fevers and chills, pain (sharp, radiates down left shoulder, increased by pressure), decreased ROM to left and headache requiring Tylenol (minimal alleviation). Additionally, pt reports left eye conjunctivitis that is being treated with eye drops for past week- told to continue therapy until re-assessed by outpatient ophthalmology next Thursday. Pt reports that he was to see Dr. Thomas in the office yesterday and had to skip his appointment due to work obligations. Denies sore throat, weakness, SOB, CP, N & V, changes to bowel or bladder habits. In ED- CT neck with findings of ~ 3.3 x 2.5 cm phlegmon/developing abscess in the subcutaneous tissues of the left posterior occipital scalp/upper neck with associated cellulitis. WBC 12.5. PMH: DM, HTN, HLD PSH: I & D of neck abscess x 3, Ex lap due to SBO All: NKDA SH: Recently quit tobacco use- 1 mo ago (used 1 pdd), on nicotine patch, denies ETOH or illicit drug use FH: Non contributory PMD: [place] Present on Admission - Present on Admission Any Indicators Present on Admission: No History of DVT/PE: No History of Uncontrolled Diabetes: No Urinary Catheter: No Decubitus Ulcer Present: No Review of Systems - Review of Systems All systems: reviewed and no additional remarkable complaints except - Constitutional Constitutional: Chills (subjective), Fever (Subjective) - EENT Eyes: Change in Vision (Left eye with conjunctivitis) Nose/Mouth/Throat: absent: Sore Throat - Cardiovascular Cardiovascular: absent: Chest Pain - Respiratory Respiratory: absent: Cough - Gastrointestinal Gastrointestinal: absent: Abdominal Pain, Change in Bowel Habits, Constipation, Nausea, Vomiting - Genitourinary Genitourinary: absent: Change in Urinary Stream - Musculoskeletal Musculoskeletal: Neck Pain (left sided). absent: Back Pain - Neurological Neurological: absent: Dizziness, Numbness, Weakness - Psychiatric Psychiatric: absent: Change in Appetite Past Patient History - Infectious Disease Hx of Infectious Diseases: None - Past Medical History & Family History Past Medical History?: Yes - Past Social History Smoking Status: Current Some Days Smoker - CARDIAC Hx Pacemaker: No - PULMONARY Hx Respiratory Disorders: No - NEUROLOGICAL Hx Paralysis: No - HEENT Hx Cataracts: Yes - RENAL Hx Chronic Kidney Disease: No - ENDOCRINE/METABOLIC Hx Endocrine Disorders: Yes Hx Diabetes Mellitus Type 2: Yes - HEMATOLOGICAL/ONCOLOGICAL Hx Blood Transfusions: No Hx Blood Transfusion Reaction: No - INTEGUMENTARY Hx Dermatological Problems: No - MUSCULOSKELETAL/RHEUMATOLOGICAL Hx Musculoskeletal Disorders: No - GASTROINTESTINAL Hx Gastrointestinal Disorders: Yes - GENITOURINARY/GYNECOLOGICAL Hx Genitourinary Disorders: No - PSYCHIATRIC Hx Psychophysiologic Disorder: No Hx Emotional Abuse: No Hx Physical Abuse: No Hx Substance Use: No - SURGICAL HISTORY Other/Comment: cataract surgery to right eye 05/13/2018 - ANESTHESIA Hx Anesthesia: Yes Hx Anesthesia Reactions: No Hx Malignant Hyperthermia: No Meds Allergies/Adverse Reactions: Allergies Allergy/AdvReac Type Severity Reaction Status Date / Time caffeine AdvReac Intermediate ABDOMINAL Verified 05/25/18 11:07 PAIN Physical Exam - Constitutional Appears: Non-toxic, No Acute Distress - Head Exam Head Exam: ATRAUMATIC - Eye Exam Eye Exam: Conjunctival injection (left eye), EOMI. absent: Normal appearance (left eye swollen) - ENT Exam ENT Exam: Mucous Membranes Moist, Normal Exam - Neck Exam Neck exam: Positive for: Tenderness (over left posterior neck swelling). Negative for: Full Rom (decreased movement to left), Meningismus - Respiratory Exam Respiratory Exam: Clear to Auscultation Bilateral, NORMAL BREATHING PATTERN - Cardiovascular Exam Cardiovascular Exam: REGULAR RHYTHM, +S1, +S2 - GI/Abdominal Exam GI & Abdominal Exam: Normal Bowel Sounds, Soft. absent: Tenderness Additional comments: well healed midline scar - Extremities Exam Extremities exam: Positive for: normal inspection - Neurological Exam Neurological exam: Alert, CN II-XII Intact, Oriented x3 - Psychiatric Exam Psychiatric exam: Normal Affect, Normal Mood - Skin Skin Exam: Dry, Erythema (left posterior neck), Intact, Warm Results - Vital Signs Recent Vital Signs: Last Vital Signs Temp 98.6 F 05/25/18 10:56 Pulse 84 05/25/18 12:36 Resp 16 05/25/18 12:36 BP 122/60 05/25/18 12:36 Pulse Ox 95 04/09/19 12:36 - Labs Result Diagrams: 05/25/18 11:35 05/25/18 11:35 Labs: Laboratory Results - last 24 hr 05/25/18 05/25/18 11:35 11:35 WBC 12.5 H RBC 4.73 Hgb 14.9 Hct 44.2 MCV 93.4 MCH 31.5 MCHC 33.7 RDW 13.2 Plt Count 183 MPV 11.3 H Neut % (Auto) 62.9 Lymph % (Auto) 28.9 [place] % (Auto) 6.4 H Eos % (Auto) 1.6 Baso % (Auto) 0.2 Lymph # (Auto) 3.6 H [place] # (Auto) 0.8 H Eos # (Auto) 0.2 Baso # (Auto) 0.03 Absolute Neuts (auto) 7.82 H Sodium 138 Potassium 4.1 Chloride 104 Carbon Dioxide 27 Anion Gap 11 BUN 14 Creatinine 0.7 L Est GFR ( Amer) > 60 Est GFR (Non-Af Amer) > 60 Random Glucose 178 H Calcium 8.7 Total Bilirubin 0.6 AST 22 ALT 27 Alkaline Phosphatase 84 Total Protein 6.8 Albumin 3.6 Globulin 3.2 Albumin/Globulin Ratio 1.1 Assessment & Plan - Assessment and Plan (Free Text) Assessment: 57M w/recurrent left posterior neck abscess admitted for the same Plan: Admit to surgery service Admit to med surg Full code VS Q6H Activity as tolerated HHD for dinner Hypoglycemic protocol FU AM labs Warm compresses to Left posterior neck swelling Pain control- morphine NPO pMN except meds D5 NS @ 150 to start at [place] Zofran PRN Continue home med: lisinopril Consent in chart Plan for OR tomorrow Continue eye drops for left eye conjunctivitis Nicotine patch for tobacco addiction DW Dr. William Arias, PGY-2 - Date & Time Date: 05/25/18 Time: 15:25
[2018-05-25] MEDS ORDERED: HYDROmorphone 0.5 mg/0.5 ml ISec IVP PRN (15:27)
[2018-05-25] MEDS ORDERED: Dextrose 50% SYRINGE Inj (50 ml) IV PRN (15:31)
[2018-05-25] MEDS ORDERED: Dextrose 5%/0.9% NS 1,000 ML IV SCH (15:45)
[2018-05-25] MEDS ORDERED: Insulin Reg-HIGH-Coverage SC SCH (16:30)
[2018-05-25] MEDS: Tobramycin/Dexamethasone (Tobradex) Opth Sol (2.5 ml) OS SCH ×2 (18:18→22:22)
[2018-05-25] MEDS: Insulin Reg-HIGH-Coverage SC SCH ×2 (18:28→21:44)
[2018-05-25] MEDS ORDERED: Insulin Regular 1 UNITS/0.01 ML ML ONE (18:29)
[2018-05-25] MEDS: Vancomycin 1gm in NS 250ml 1 GM/250 ML BAG IVPB SCH (18:30)
[2018-05-25] MEDS: Morphine 2 mg/ml ISec IVP PRN (20:17)
[2018-05-26] MEDS ORDERED: Dextrose 5%/0.9% NS 1,000 ML IV SCH
[2018-05-26] MEDS: Morphine 2 mg/ml ISec IVP PRN (00:27)
[2018-05-26] MEDS: Vancomycin 1gm in NS 250ml 1 GM/250 ML BAG IVPB SCH ×2 (04:02→16:51)
[2018-05-26] MEDS: Insulin Reg-HIGH-Coverage SC SCH ×4 (04:37→22:27)
[2018-05-26 07:03] LABS: BASO # 0.04 K/mm3 (0.0-2.0); BASO % 0.3 % (0.0-3.0); EOS # 0.3 (0.0-0.7); EOS % 2.2 % (1.5-5.0); HEMOGLOBIN 13.9 g/dL (14.0-18.0); LYMPH # 3.6 (1.2-3.4); LYMPH % 29.3 % (22.0-35.0); MEAN CELL VOLUME 94.1 fl (80.0-105.0); MEAN CORPUSCULAR HEMOGLOBIN 30.6 pg (25.0-35.0); MEAN CORPUSCULAR HGB CONC 32.6 g/dl (31.0-37.0); MONO # 0.8 (0.1-0.6); MONO % 6.4 % (1.0-6.0); RBC 4.54 10^6/uL (3.5-6.1); RED CELL DISTRIBUTION WIDTH 13.2 % (11.5-14.5); WHITE BLOOD COUNT 12.2 10^3/uL (4.5-11.0)
[2018-05-26 07:05] LABS: INR 0.99; PARTIAL THROMBOPLASTIN TIME 33.2 Seconds (26.9-38.3); PROTHROMBIN TIME 11.2 SECONDS (9.4-12.5)
[2018-05-26 07:10] LABS: BLOOD UREA NITROGEN 13 mg/dL (7-21); CALCIUM 8.1 mg/dL (8.4-10.5); GFR NON-AFRICAN AMERICAN > 60
[2018-05-26] MEDS: Tobramycin/Dexamethasone (Tobradex) Opth Sol (2.5 ml) OS SCH ×4 (10:00→22:30)
[2018-05-26] MEDS ORDERED: Midazolam 2 MG/2 ML VIAL ONE (10:24)
[2018-05-26] MEDS ORDERED: Propofol 10 mg/ml Inj (20 ML) ONE (10:24)
[2018-05-26] MEDS ORDERED: Succinylcholine 200 mg/10 ml Inj IV ONE (10:40)
[2018-05-26] MEDS ORDERED: Bupivacaine 0.5% 50 ML IJ ONE ×3 (10:53→11:13)
[2018-05-26] MEDS ORDERED: Phenylephrine 10 mg/ml Inj ONE (10:54)
[2018-05-26] MEDS ORDERED: CeFAZolin 1 gm in NS 100ml IVPB ONE (10:55)
[2018-05-26] MEDS ORDERED: HYDROmorphone 0.5 mg/0.5 ml ISec IVP PRN (11:46)
--- NOTE | 2018-05-26 11:50 | PCM.SURG1 ---
Surgeon's Initial Post Op Note - Surgeon's Notes Surgeon: Dr. Sherman Thomas [employer] Supervisor: Luz Arias, PGY-2 Type of Anesthesia: General Endo Anesthesia Administered By: Dr. Perez Pre-Operative Diagnosis: Left posterior neck abscess Operative Findings: Deep posterior left neck abscess cavity with purulent material Post-Operative Diagnosis: Deep left posterior neck abscess Operation Performed: Excision of Deep Left posterior neck abscess cavity Specimen/Specimens Removed: Left posterior neck abscess cavity Estimated Blood Loss: EBL {In ML}: 5 Blood Products Given: N/A Drains Used: Lance (Modified wide rubber drain- not a lance) Post-Op Condition: Good Date of Surgery/Procedure: 05/26/18 Time of Surgery/Procedure: 11:50
[2018-05-26] MEDS ORDERED: Lactated Ringer's 1,000 ML IV SCH (12:00)
--- NOTE | 2018-05-26 12:04 | PCM.OP ---
Operative Report - Operative Report Date of Surgery/Procedure: 05/26/18 Time of Surgery/Procedure: 11:51 Surgeon: Dr Sherman Thomas Director Account Management: Luz Arias, PGY-2 Anesthesia/Sedation: General endotracheal intubation by Dr. 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 Pt seen and evaluated in ED for recurrence of Left posterior neck abscess with pain, swelling, subjective fevers for 3 days prior to evaluation. Imaging demonstrated deep location of abscess. Patient was consented for incision and drainage of Left posterior neck abscess and all other indication procedures. All risks and benefits were discussed with patient prior to procedure. All questions were answered. Patient was brought into the operating room and laid supine on the operating table. General endotracheal anesthesia was administered. Patient was repositioned into right lateral decubitus position. Patient was prepped and draped in the usual sterile fashion. A time out was performed and patient was identified by name, procedure and laterality. Local anesthetic was infiltrated. Needle aspiration was performed to identify location of abscess with aspiration of approximately 6cc of purulent material. An elliptical skin incision was made and the abscess cavity identified and sharply excised circumferentially. A 26Fr rubber drain was sutured into place to allow for deep drainage. Local anesthetic was infiltrated into the deep cavity. Hemostasis was achieved with electrocautery. Packing was placed. A dressing was applied and secured with tape. All sponges, instruments, and sutures were declared to be correct at the end of the procedure. Patient was extubated and taken to the post anesthesia care unit in stable condition. Procedure/Operation Description: Excision of Left posterior neck abscess cavity Estimated Blood Loss: 5cc Blood Replaced: Not indicated Sponge/Instrument Count: Declared to be correct at end of procedure Drains: Modified 26Fr rubber catheter drain sutured into place Complications: none Specimen: Purulent aspirated material from abscess cavity Left posterior neck abscess cavity Discharge & Condition: Patient to be transferred back to floor when meets criteria
[2018-05-26] MEDS ORDERED: ceFAZolin 1 gm in NS 1 GM/100 ML BAG IVPB SCH (22:00)
[2018-05-26] MEDS: Amoxicillin-Clav 500-125 mg Tab PO SCH (22:30)
[2018-05-27] MEDS: Amoxicillin-Clav 500-125 mg Tab PO SCH (05:31)
[2018-05-27 06:21] VITALS: BP 148/90; RESP 18; TEMP 98.1
[2018-05-27 07:23] VITALS: PULSE 96; O2SAT 97
[2018-05-27] MEDS: Insulin Reg-HIGH-Coverage SC SCH ×2 (08:25→12:20)
[2018-05-27] MEDS ORDERED: Oxychlorosene Topical 2 gm Packet TOP SCH (10:00)
[2018-05-27] MEDS: Tobramycin/Dexamethasone (Tobradex) Opth Sol (2.5 ml) OS SCH (10:13)
--- NOTE | 2018-05-27 12:11 | CP.PCM.DIS ---
Provider - Provider Date of Admission: 05/25/18 14:21 Attending physician: Sherman Thomas MD Primary care physician: Analy Wilder MD Consults: None Time Spent in preparation of Discharge (in minutes): 35 Hospital Course - Lab Results Lab Results: Micro Results 05/25/18 11:35 Blood Blood Culture - Preliminary NO GROWTH AFTER 48 HOURS 05/26/18 13:11 Neck Gram Stain - Final 05/25/18 12:05 Blood Blood Culture - Preliminary NO GROWTH AFTER 24 HOURS Most Recent Lab Values WBC 12.2 10^3/uL (4.5-11.0) H 05/26/18 06:35 RBC 4.54 10^6/uL (3.5-6.1) 05/26/18 06:35 Hgb 13.9 g/dL (14.0-18.0) L 05/26/18 06:35 Hct 42.7 % (42.0-52.0) 05/26/18 06:35 MCV 94.1 fl (80.0-105.0) 05/26/18 06:35 MCH 30.6 pg (25.0-35.0) 05/26/18 06:35 MCHC 32.6 g/dl (31.0-37.0) 05/26/18 06:35 RDW 13.2 % (11.5-14.5) 05/26/18 06:35 Plt Count 182 10^3/uL (120.0-450.0) 05/26/18 06:35 MPV 11.0 fl (7.0-11.0) 05/26/18 06:35 Neut % (Auto) 61.8 % (50.0-68.0) 05/26/18 06:35 Lymph % (Auto) 29.3 % (22.0-35.0) 05/26/18 06:35 Alcorn % (Auto) 6.4 % (1.0-6.0) H 05/26/18 06:35 Eos % (Auto) 2.2 % (1.5-5.0) 05/26/18 06:35 Baso % (Auto) 0.3 % (0.0-3.0) 05/26/18 06:35 Lymph # (Auto) 3.6 (1.2-3.4) H 05/26/18 06:35 Alcorn # (Auto) 0.8 (0.1-0.6) H 05/26/18 06:35 Eos # (Auto) 0.3 (0.0-0.7) 05/26/18 06:35 Baso # (Auto) 0.04 K/mm3 (0.0-2.0) 05/26/18 06:35 Absolute Neuts (auto) 7.52 (1.4-6.5) H 05/26/18 06:35 PT 11.2 SECONDS (9.4-12.5) 05/26/18 06:35 INR 0.99 05/26/18 06:35 APTT 33.2 Seconds (26.9-38.3) 05/26/18 06:35 Sodium 138 mmol/L (132-148) 05/26/18 06:35 Potassium 3.8 mmol/L (3.6-5.0) 05/26/18 06:35 Chloride 103 mmol/L (98-107) 05/26/18 06:35 Carbon Dioxide 28 mmol/L (21-33) 05/26/18 06:35 Anion Gap 11 (10-20) 05/26/18 06:35 BUN 13 mg/dL (7-21) 05/26/18 06:35 Creatinine 0.7 mg/dl (0.8-1.5) L 05/26/18 06:35 Est GFR ( Amer) > 60 05/26/18 06:35 Est GFR (Non-Af Amer) > 60 05/26/18 06:35 POC Glucose (mg/dL) 211 mg/dL (65-110) H 05/27/18 11:53 Random Glucose 206 mg/dL (70-110) H 05/26/18 06:35 Calcium 8.1 mg/dL (8.4-10.5) L 05/26/18 06:35 Total Bilirubin 0.6 mg/dL (0.2-1.3) 05/25/18 11:35 AST 22 U/L (17-59) 05/25/18 11:35 ALT 27 U/L (7-56) 05/25/18 11:35 Alkaline Phosphatase 84 U/L (38-126) 05/25/18 11:35 Total Protein 6.8 g/dL (5.8-8.3) 05/25/18 11:35 Albumin 3.6 g/dL (3.0-4.8) 05/25/18 11:35 Globulin 3.2 gm/dL 05/25/18 11:35 Albumin/Globulin Ratio 1.1 (1.1-1.8) 05/25/18 11:35 - Hospital Course Hospital Course: 57M w/PMH sig for recurrent left posterior neck abscesses requiring incision and drainage admitted for the same. Pt reports noticing increasing swelling of left posterior neck over the past 3 days. Admits to subjective fevers and chills, pain (sharp, radiates down left shoulder, increased by pressure), decreased ROM to left and headache requiring Tylenol (minimal alleviation). Additionally, pt reports left eye conjunctivitis that is being treated with eye drops for past week- told to continue therapy until re-assessed by outpatient ophthalmology next Thursday. Pt reports that he was to see Dr. Thomas in the office yesterday and had to skip his appointment due to work obligations. Denies sore throat, weakness, SOB, CP, N & V, changes to bowel or bladder habits. In ED- CT neck with findings of ~ 3.3 x 2.5 cm phlegmon/developing abscess in the subcutaneous tissues of the left posterior occipital scalp/upper neck with associated cellulitis. WBC 12.5. Patient was admitted and started on antibiotics for neck abscess. Patient was then taken to the operating room for incision and drainage with wide debridement of abscess cavity without complications on hospital day 2. Patient tolerated procedure well and was kept overnight for post operative monitoring. Patient was stable post operatively and ready for discharge home with PO antibiotics and instructions for home packing changes. - Date & Time of H&P Date of H&P: 05/25/18 Time of H&P: 15:13 Discharge Exam - Head Exam Head Exam: ATRAUMATIC, NORMAL INSPECTION, NORMOCEPHALIC - Eye Exam Eye Exam: EOMI, Normal appearance - ENT Exam ENT Exam: Mucous Membranes Moist, Normal Exam - Neck Exam Neck exam: Full Rom Additional comments: Left posterior neck with dressing in place, able to visualize packing, drain- dressing is clean/dry/intact - Respiratory Exam Respiratory Exam: Clear to PA & Lateral, NORMAL BREATHING PATTERN, UNREMARKABLE - Cardiovascular Exam Cardiovascular Exam: REGULAR RHYTHM, +S1, +S2 - GI/Abdominal Exam GI & Abdominal Exam: Normal Bowel Sounds, Soft, Unremarkable. absent: Distended, Tenderness - Extremities Exam Extremities exam: full ROM - Back Exam Back exam: FULL ROM - Neurological Exam Neurological exam: Alert, CN II-XII Intact, Oriented x3 - Psychiatric Exam Psychiatric exam: Normal Affect, Normal Mood - Skin Skin Exam: Dry, Intact, Normal Color, Warm Discharge Plan - Discharge Medications Prescriptions: Amoxicillin/Clavulanate [Augmentin 875 MG-125 MG] 1 tab PO BID #10 tab traMADol [Ultram] 50 mg PO TID #15 tab - Follow Up Plan Condition: STABLE Disposition: HOME/ ROUTINE Instructions: Abscess Incision and Drainage (DC), How to Keep Track of Your Drainage, Abscess (GEN) Additional Instructions: Follow up with next week Change packing daily with folded 4 x 4 gauze, with a small amount Chloropactin /Saline solution to wet it OK to resume normal activities and normal diet. Do not operate heavy machinery if you take the prescription pain killers. Please return for evaluation if you have fevers, chills Referrals: Analy Redmond MD [Primary Care Provider] - Sherman Thomas MD [Staff Provider] -
== END 2018-05-27 13:14 | disposition home or self-care (01) | DRG 269 ==
LOC: ED 10:04 → ERH 14:21 → 5RNO 19:34
PROVIDERS: ADMIT Surgery; ATTEND Surgery
PROC: 0J950ZZ Drainage of Left Neck Subcutaneous Tissue and Fascia, Open Approach (ICD-10-PCS; principal; 2018-05-26 10:00)
DX: L02.11 Cutaneous abscess of neck (principal); L03.811 Cellulitis of head [any part, except face]; J35.2 Hypertrophy of adenoids; H10.9 Unspecified conjunctivitis; E11.9 Type 2 diabetes mellitus without complications; Z87.891 Personal history of nicotine dependence; Z83.438 Family history of other disorder of lipoprotein metabolism and other lipidemia; Z83.3 Family history of diabetes mellitus; Z82.49 Family history of ischemic heart disease and other diseases of the circulatory system; Z98.41 Cataract extraction status, right eye; Z91.018 Allergy to other foods

== ENCOUNTER 2018-06-06 11:44 | Emergency (ER) | payer MEDICAID ==
[2018-06-06 11:45] VITALS: BMI 36.1
[2018-06-06] MEDS ORDERED: Sodium Chloride 0.9% 1,000 ML IV STA (12:26)
[2018-06-06 12:32] VITALS: O2SAT 98
[2018-06-06 12:36] LABS: BASO # 0.04 K/mm3 (0.0-2.0); BASO % 0.4 % (0.0-3.0); EOS # 0.3 (0.0-0.7); EOS % 2.9 % (1.5-5.0); HEMOGLOBIN 15.8 g/dL (14.0-18.0); LYMPH # 3.6 (1.2-3.4); LYMPH % 35.7 % (22.0-35.0); MEAN CELL VOLUME 92.9 fl (80.0-105.0); MEAN CORPUSCULAR HEMOGLOBIN 31.9 pg (25.0-35.0); MEAN CORPUSCULAR HGB CONC 34.3 g/dl (31.0-37.0); MEAN PLATELET VOLUME 11.2 fl (7.0-11.0); MONO # 0.5 (0.1-0.6); RBC 4.96 10^6/uL (3.5-6.1); RED CELL DISTRIBUTION WIDTH 13.1 % (11.5-14.5); WHITE BLOOD COUNT 10.1 10^3/uL (4.5-11.0)
[2018-06-06 12:38] LABS: VENOUS BLOOD GAS PO2 26 mm/Hg (30-55); VENOUS BLOOD PH 7.45 (7.32-7.43)
--- NOTE | 2018-06-06 12:40 | ED PDOC ---
Arrival/HPI - General Historian: Patient - History of Present Illness Narrative History of Present Illness (Text): 06/06/18 12:41 Kerwin Quiels is a 57 y.o male with past medical history of recurrent left posterior neck abscesses, diabetes and glaucoma, presents to the ED for a re- evaluation of wound located in the back of the neck. Patient reports having a procedure about 2 weeks ago for drainage of abscess. Patient notes pain, migraine and greenish puss from the wound since last night. Patient denies any fever, chills, chest pain, shortness of breath, nausea, vomiting, diarrhea, urinary symptoms, back pain, or any other complaints. Time/Duration: 24 hours (Last night) Symptom Onset: Gradual Activities at Onset: Light Context: Home <Harry Norton - Last Filed: 06/06/18 17:31> <Morena Hayes PA-C - Last Filed: 06/08/18 17:28> - General Chief Complaint: Wound Check Past Medical History - Provider Review Nursing Documentation Reviewed: Yes - Infectious Disease Hx of Infectious Diseases: None - Cardiac Hx Pacemaker: No - Pulmonary Hx Respiratory Disorders: No - Neurological Hx Paralysis: No - HEENT Hx Cataracts: Yes - Renal Hx Renal Disorder: No - Endocrine/Metabolic Hx Endocrine Disorders: Yes Hx Diabetes Mellitus Type 2: Yes - Hematological/Oncological Hx Blood Transfusions: No Hx Blood Transfusion Reaction: No - Integumentary Hx Dermatological Disorder: No - Musculoskeletal/Rheumatological Hx Musculoskeletal Disorders: No - Gastrointestinal Hx Gastrointestinal Disorders: Yes - Genitourinary/Gynecological Hx Genitourinary Disorders: No - Psychiatric Hx Psychophysiologic Disorder: No Hx Emotional Abuse: No Hx Physical Abuse: No Hx Substance Use: No - Surgical History Other/Comment: cataract surgery to right eye 05/13/2018 - Anesthesia Hx Anesthesia: No Hx Anesthesia Reactions: No Hx Malignant Hyperthermia: No - Suicidal Assessment Feels Threatened In Home Enviroment: No <Harry Norton - Last Filed: 06/06/18 17:31> - Provider Review Primary Care Physician: Analy Wilder MD <Morena Hayes PA-C - Last Filed: 06/08/18 17:28> Family/Social History - Physician Review Nursing Documentation Reviewed: Yes Family/Social History: Unknown Family HX Smoking Status: Current Some Days Smoker Hx Alcohol Use: No Hx Substance Use: No <Harry Norton - Last Filed: 06/06/18 17:31> Allergies/Home Meds <Harry Norton - Last Filed: 06/06/18 17:31> <Morena Hayes PA-C - Last Filed: 06/08/18 17:28> Allergies/Adverse Reactions: Allergies caffeine Adverse Reaction (Intermediate, Verified 05/25/18 11:07) ABDOMINAL PAIN Home Medications: Home Meds Medication Instructions Recorded Confirmed Atorvastatin [Lipitor] 80 mg PO QAM 03/05/15 06/06/18 Empagliflozin [Jardiance] 10 mg PO QAM 04/14/17 06/06/18 Ezetimibe [Zetia] 10 mg PO QAM 04/14/17 06/06/18 Glyburide/Metformin HCl 1 each PO BID 04/14/17 01/05/18 [Glyburide-Metformin 5-500 mg] Lisinopril [Zestril] 10 mg PO QAM 04/14/17 06/06/18 Insulin Glargine,Hum.rec.anlog 50 unit SQ HS 12/29/17 06/06/18 [Basaglalex Jefferypen U-100] Review of Systems - Physician Review All systems were reviewed & negative as marked: Yes - Review of Systems Constitutional: absent: Fatigue, Fevers Eyes: absent: Vision Changes ENT: absent: Hearing Changes Respiratory: absent: SOB, Cough Cardiovascular: absent: Chest Pain Gastrointestinal: absent: Abdominal Pain Musculoskeletal: Neck Pain. absent: Back Pain Skin: Other (Drainage wound on the back of the neck. ). absent: Rash Neurological: Headache (migraine ) <Harry Norton - Last Filed: 06/06/18 17:31> Physical Exam Vital Signs Temp Pulse Resp BP Pulse Ox 06/06/18 12:29 101 H 22 98 06/06/18 11:49 97.5 F L 125 H 18 102/72 100 Temperature: Afebrile Blood Pressure: Normal Pulse: Tachycardic Respiratory Rate: Normal Appearance: Positive for: Well-Appearing, Non-Toxic Pain Distress: Mild Mental Status: Positive for: Alert and Oriented X 3 - Systems Exam Pupils: Present: PERRL. No: Sluggish Extroacular Muscles: Present: EOMI Neck: Present: Other (Deep healing posterior wound noted to drainage. No purulent discharged. No active bleeding. Slight tenderness to palpation. ) Respiratory/Chest: Present: Clear to Auscultation, Good Air Exchange. No: Respiratory Distress, Wheezes, Rales, Rhonchi Cardiovascular: Present: Tachycardic Neurological: Present: GCS=15, Speech Normal Skin: Present: Normal Color. No: Rashes Psychiatric: Present: Alert, Oriented x 3, Normal Concentration <Harry Norton - Last Filed: 06/06/18 17:31> Vital Signs Temp Pulse Resp BP Pulse Ox 06/06/18 15:54 98.6 F 68 18 109/77 98 06/06/18 12:29 101 H 22 98 06/06/18 11:49 97.5 F L 125 H 18 102/72 100 <Morena Hayes PA-C - Last Filed: 06/08/18 17:28> Medical Decision Making ED Course and Treatment: 06/06/18 13:15 Impression: 57 year old male who presents to the emergency department complaining of pain and green puss coming from drainage wound on the back of the neck. Plan: -- Labs -- Head w/o contrast CT -- Neck soft tissue without contrast CT -- EKG -- IV fluids -- Reassess and disposition Prior Visits: Notes and results from previous visits were reviewed. Progress Notes: - Lab Interpretations Narrative Lab Interpretation (Text): 06/06/18 13:17 06/06/18 12:20 06/06/18 12:20 Lab Results 06/06/18 12:30: pO2 26 L, VBG pH 7.45 H, VBG pCO2 39.0 L, VBG HCO3 27.1, VBG Total CO2 28.3 H, VBG O2 Sat (Calc) 59.6, VBG Base Excess 3.0 H, VBG Potassium 4.6, Glucose 251 H, Lactate 2.0, FiO2 21.0, Sodium 138.0, Chloride 104.0, Venous Blood Potassium 4.6 06/06/18 12:20: Sodium 140, Potassium 4.6, Chloride 104, Carbon Dioxide 27, Anion Gap 13, BUN 17, Creatinine 0.8, Est GFR ( Amer) > 60, Est GFR (Non- Af Amer) > 60, Random Glucose 242 H, Calcium 9.4, Phosphorus 2.3 L, Magnesium 2.0, Total Bilirubin 0.5, AST 26, ALT 27, Alkaline Phosphatase 82, Troponin I < 0.01, NT-Pro-B Natriuret Pep 12.2, Total Protein 7.7, Albumin 4.2, Globulin 3.5, Albumin/Globulin Ratio 1.2 06/06/18 12:20: PT 12.7 H, INR 1.12, APTT 36.9 06/06/18 12:20: WBC 10.1, RBC 4.96, Hgb 15.8, Hct 46.1, MCV 92.9, MCH 31.9, MCHC 34.3, RDW 13.1, Plt Count 279, MPV 11.2 H, Neut % (Auto) 56.0, Lymph % (Auto) 35.7 H, Garfield % (Auto) 5.0, Eos % (Auto) 2.9, Baso % (Auto) 0.4, Lymph # (Auto) 3.6 H, Garfield # (Auto) 0.5, Eos # (Auto) 0.3, Baso # (Auto) 0.04, Absolute Neuts (auto) 5.67, ESR Pending Lab Results: 06/06/18 12:20 06/06/18 12:20 Lab Results 06/06/18 12:30: pO2 26 L, VBG pH 7.45 H, VBG pCO2 39.0 L, VBG HCO3 27.1, VBG Total CO2 28.3 H, VBG O2 Sat (Calc) 59.6, VBG Base Excess 3.0 H, VBG Potassium 4.6, Glucose 251 H, Lactate 2.0, FiO2 21.0, Sodium 138.0, Chloride 104.0, Venous Blood Potassium 4.6 06/06/18 12:20: Sodium 140, Potassium 4.6, Chloride 104, Carbon Dioxide 27, Anion Gap 13, BUN 17, Creatinine 0.8, Est GFR ( Amer) > 60, Est GFR (Non- Af Amer) > 60, Random Glucose 242 H, Calcium 9.4, Phosphorus 2.3 L, Magnesium 2.0, Total Bilirubin 0.5, AST 26, ALT 27, Alkaline Phosphatase 82, Troponin I < 0.01, NT-Pro-B Natriuret Pep 12.2, Total Protein 7.7, Albumin 4.2, Globulin 3.5, Albumin/Globulin Ratio 1.2 06/06/18 12:20: PT 12.7 H, INR 1.12, APTT 36.9 06/06/18 12:20: WBC 10.1, RBC 4.96, Hgb 15.8, Hct 46.1, MCV 92.9, MCH 31.9, MCHC 34.3, RDW 13.1, Plt Count 279, MPV 11.2 H, Neut % (Auto) 56.0, Lymph % (Auto) 35.7 H, Garfield % (Auto) 5.0, Eos % (Auto) 2.9, Baso % (Auto) 0.4, Lymph # (Auto) 3.6 H, Garfield # (Auto) 0.5, Eos # (Auto) 0.3, Baso # (Auto) 0.04, Absolute Neuts (auto) 5.67, ESR 12 I have reviewed the lab results: Yes - RAD Interpretation Narrative RAD Interpretations (Text): 06/06/18 12:50 Chest X-Ray Impression: No active disease. 06/06/18 14:07 Soft tissue without contrast CT: Impression: There is a surgical defect and drainage catheter in the left posterior neck at the site of previously identified abscess. There is no evidence of residual absc ess. 06/06/18 14:[address] without contrast: Impression: No acute intracranial findings Radiology Orders: 06/06/18 12:23 CHEST PORTABLE [RAD] Stat 06/06/18 12:25 HEAD W/O CONTRAST [CT] Stat NECK SOFT TISSUE W/O CONTRAST [CT] Stat Dermatology Procedural Physician: Radiologist - EKG Interpretation EKG Interpretation (Text): 06/06/18 12:14 EKG: Ordered, reviewed, and independently interpreted the EKG. Rate : 104 BPM Rhythm : Sinus tachycardia Interpretation : No ST-segment elevations, no T-wave inversions. Comparison : No previous EKG for comparison. - Medication Orders Current Medication Orders: Sodium Chloride (Sodium Chloride 0.9%) 1,000 mls @ 999 mls/hr IV .Q1H1M STA Stop: 06/06/18 13:26 <Harry Norton - Last Filed: 06/06/18 17:31> - Lab Interpretations Microbiology Results: Microbiology Results 06/06/18 12:20 Blood Blood Culture - Preliminary NO GROWTH AFTER 48 HOURS 06/06/18 12:20 Other: Please Indicate Gram Stain - Final 06/06/18 12:20 Other: Please Indicate Wound Culture - Final Enterobacter Cloacae Ssp Cloac Staphylococcus Epidermidis Lab Results: pO2 26 mm/Hg (30-55) L 06/06/18 12:30 VBG pH 7.45 (7.32-7.43) H 06/06/18 12:30 VBG pCO2 39.0 (40-60) L 06/06/18 12:30 VBG HCO3 27.1 mmol/l (21-28) 06/06/18 12:30 VBG Total CO2 28.3 mmol.L (22-28) H 06/06/18 12:30 VBG O2 Sat (Calc) 59.6 % (40-65) 06/06/18 12:30 VBG Base Excess 3.0 mmol/L (0.0-2.0) H 06/06/18 12:30 VBG Potassium 4.6 mmol/L (3.6-5.2) 06/06/18 12:30 Sodium 138.0 mmol/L (132-148) 06/06/18 12:30 Chloride 104.0 mmol/L (98-107) 06/06/18 12:30 Glucose 251 mg/dl (75-110) H 06/06/18 12:30 Lactate 2.0 mmol/L (0.7-2.1) 06/06/18 12:30 FiO2 21.0 % 06/06/18 12:30 PT 12.7 SECONDS (9.4-12.5) H 06/06/18 12:20 INR 1.12 06/06/18 12:20 APTT 36.9 Seconds (26.9-38.3) 06/06/18 12:20 Troponin I < 0.01 ng/mL 06/06/18 12:20 NT-Pro-B Natriuret Pep 12.2 pg/mL (0-450) 06/06/18 12:20 Total Bilirubin 0.5 mg/dL (0.2-1.3) 06/06/18 12:20 AST 26 U/L (17-59) 06/06/18 12:20 ALT 27 U/L (7-56) 06/06/18 12:20 Alkaline Phosphatase 82 U/L (38-126) 06/06/18 12:20 Total Protein 7.7 g/dL (5.8-8.3) 06/06/18 12:20 Albumin 4.2 g/dL (3.0-4.8) 06/06/18 12:20 Globulin 3.5 gm/dL 06/06/18 12:20 Albumin/Globulin Ratio 1.2 (1.1-1.8) 06/06/18 12:20 - RAD Interpretation Radiology Orders: 06/06/18 12:23 CHEST PORTABLE [RAD] Stat 06/06/18 12:25 HEAD W/O CONTRAST [CT] Stat NECK SOFT TISSUE W/O CONTRAST [CT] Stat - Medication Orders Current Medication Orders: Discontinued Medications Diazepam (Valium) 5 mg PO ONCE ONE; Protocol Stop: 06/06/18 13:36 Last Admin: 06/06/18 14:21 Dose: 5 mg Sodium Chloride (Sodium Chloride 0.9%) 1,000 mls @ 999 mls/hr IV .Q1H1M STA Stop: 06/06/18 13:26 Last Admin: 06/06/18 12:26 Dose: 999 mls/hr eMAR Start Stop Document 06/06/18 12:26 DM (Rec: 06/06/18 14:14 DM [facility]-20) Intravenous Solution Start Date 06/06/18 Start Time 12:26 Ketorolac Tromethamine (Toradol) 30 mg IVP STAT STA Stop: 06/06/18 13:36 Last Admin: 06/06/18 14:21 Dose: 30 mg MAR Pain Assessment Document 06/06/18 14:21 DM (Rec: 06/06/18 14:22 DM [facility]-20) Pain Reassessment Is this a pain reassessment? No Location Left, Right or Bilateral Left Pain Location Body Site Neck Description Intensity of Pain at present 5 IVP Administration Document 06/06/18 14:21 DM (Rec: 06/06/18 14:22 DM [facility]-20) Charges for Administration # of IVP Administrations 1 <Morena Hayes PA-C - Last Filed: 06/08/18 17:28> - Scribe Statement The provider has reviewed the documentation as recorded by the Scribe Sonya Garcia All medical record entries made by the Scribe were at my direction and personally dictated by me. I have reviewed the chart and agree that the record accurately reflects my personal performance of the history, physical exam, medical decision making, and the department course for this patient. I have also personally directed, reviewed, and agree with the discharge instructions and disposition. <Harry Norton - Last Filed: 06/06/18 17:31> Disposition/Present on Arrival - Present on Arrival Any Indicators Present on Arrival: No History of DVT/PE: No History of Uncontrolled Diabetes: No Urinary Catheter: No History of Decub. Ulcer: No History Surgical Site Infection Following: None - Disposition Have Diagnosis and Disposition been Completed?: Yes Disposition Time: 14:37 Patient Plan: Discharge <Harry Norton - Last Filed: 06/06/18 17:31> - Notes Notes (Text): 06/08/18 17:27 Wound cx +staph epidermidis sensitive to bactrim. Pt called, notified of results, states that he was on antibiotic - augmentin, which was Rx by Dr. Thomas. Pt advised to d/c augmentin as pcn is resistant. Rx sent to his pharmacy, advised to f/u with pmd or Dr. Thomas. <Morena Hayes PA-C - Last Filed: 06/08/18 17:28> - Disposition Diagnosis: Neck pain, Abscess of neck Disposition: HOME/ ROUTINE Condition: STABLE Discharge Instructions (ExitCare): Abscess Incision and Drainage (DC), Generalized Neck Pain (DC) Print Language: CYPRIOT Additional Instructions: All medical record entries made by the Scribe were at my direction and personally dictated by me. I have reviewed the chart and agree that the record accurately reflects my personal performance of the history, physical exam, medical decision making, and the department course for this patient. I have also personally directed, reviewed, and agree with the discharge instructions and disposition. Please follow up with Dr. Thomas in 1 week Prescriptions: Sulfamethoxazole/Trimethoprim [Bactrim DS 800 mg-160 mg] 1 tab PO BID #14 tab Referrals: Analy Redmond MD [Primary Care Provider] - Follow up with primary Sherman Thomas MD [Staff Provider] - Follow up with primary Forms: MECLUB (Arabic)
[2018-06-06 12:44] LABS: INR 1.12; PARTIAL THROMBOPLASTIN TIME 36.9 Seconds (26.9-38.3); PROTHROMBIN TIME 12.7 SECONDS (9.4-12.5)
--- NOTE | 2018-06-06 12:52 | CP.PCM.CON ---
History of Present Illness - History of Present Illness History of Present Illness: General surgery consult note for Dr. Thomas-Luz Arias, PGY-2 Pt seen/examined in ED [age]M w/PMH sig fro recurrent posterior neck abscesses s/p multiple I & D, most recent on 05/26/18. Pt reports seeing Dr. Thomas 3 days prior to evaluation with instructions on continued home wound care and a refill of pain medications. Pt states he was unable to re-fill the pain medication and started to have headaches/pain since that day. Pt reports greenish clear drainage from wound x 1 day, pt was concerned this was purulent. Additionally, pt reports he has been sweating, having subjective fevers (currently afebrile). Denies N & V, CP, SOB, changes in bowel or bladder habits, other complaints at this time. In ED- Temp 97.5 WBC 10.1 (WNL). CT head- no acute intracranial abnormalities CT neck- no residual abscess. PMH: DM, HTN, HLD, obesity, recurrent posterior neck abscesses PSH: Intra-abdominal hernia repair (remote), L neck I & D All: Caffiene SH: Admits to tobacco use - 1/2ppd x 50 yrs, denies ETOH or illicit drug use PMD: [place] Review of Systems - Review of Systems All systems: reviewed and no additional remarkable complaints except - Constitutional Constitutional: Headache. absent: Chills, Fever - EENT Nose/Mouth/Throat: absent: Sore Throat - Cardiovascular Cardiovascular: absent: Chest Pain - Respiratory Respiratory: absent: Cough - Gastrointestinal Gastrointestinal: absent: Abdominal Pain, Nausea, Vomiting - Genitourinary Genitourinary: absent: Change in Urinary Stream - Musculoskeletal Musculoskeletal: Neck Pain - Integumentary Integumentary: absent: New Lesions - Neurological Neurological: Headaches. absent: Dizziness - Psychiatric Psychiatric: absent: Change in Appetite Past Patient History - Infectious Disease Hx of Infectious Diseases: None - Past Medical History & Family History Past Medical History?: Yes - Past Social History Smoking Status: Current Some Days Smoker - CARDIAC Hx Pacemaker: No - PULMONARY Hx Respiratory Disorders: No - NEUROLOGICAL Hx Paralysis: No - HEENT Hx Cataracts: Yes - RENAL Hx Chronic Kidney Disease: No - ENDOCRINE/METABOLIC Hx Endocrine Disorders: Yes Hx Diabetes Mellitus Type 2: Yes - HEMATOLOGICAL/ONCOLOGICAL Hx Blood Transfusions: No Hx Blood Transfusion Reaction: No - INTEGUMENTARY Hx Dermatological Problems: No - MUSCULOSKELETAL/RHEUMATOLOGICAL Hx Musculoskeletal Disorders: No - GASTROINTESTINAL Hx Gastrointestinal Disorders: Yes - GENITOURINARY/GYNECOLOGICAL Hx Genitourinary Disorders: No - PSYCHIATRIC Hx Psychophysiologic Disorder: No Hx Emotional Abuse: No Hx Physical Abuse: No Hx Substance Use: No - SURGICAL HISTORY Other/Comment: cataract surgery to right eye 05/13/2018 - ANESTHESIA Hx Anesthesia: No Hx Anesthesia Reactions: No Hx Malignant Hyperthermia: No Meds Allergies/Adverse Reactions: Allergies Allergy/AdvReac Type Severity Reaction Status Date / Time caffeine AdvReac Intermediate ABDOMINAL Verified 05/25/18 11:07 PAIN - Medications Medications: Current Medications Sodium Chloride (Sodium Chloride 0.9%) 1,000 mls @ 999 mls/hr IV .Q1H1M STA Stop: 06/06/18 13:26 Physical Exam - Constitutional Appears: Non-toxic, No Acute Distress - Head Exam Head Exam: ATRAUMATIC, NORMAL INSPECTION, NORMOCEPHALIC - Eye Exam Eye Exam: EOMI, Normal appearance - ENT Exam ENT Exam: Mucous Membranes Moist, Normal Exam - Neck Exam Additional comments: Posterior neck with large open wound with granulation tissue visible, drain in place, serous drainage, no purulent drainage, no fluctuance noted, tender to palpation along incision margins - Respiratory Exam Respiratory Exam: NORMAL BREATHING PATTERN - Cardiovascular Exam Cardiovascular Exam: Tachycardia, +S1, +S2 - GI/Abdominal Exam GI & Abdominal Exam: absent: Distended (obese) - Extremities Exam Extremities exam: Positive for: normal inspection - Neurological Exam Neurological exam: Alert, CN II-XII Intact, Oriented x3 - Psychiatric Exam Psychiatric exam: Normal Affect, Normal Mood - Skin Skin Exam: Dry, Normal Color, Warm Results - Vital Signs Recent Vital Signs: Last Vital Signs Temp 97.5 F L 06/06/18 11:49 Pulse 101 H 06/06/18 12:29 Resp 22 06/06/18 12:29 BP 102/72 06/06/18 11:49 Pulse Ox 98 06/06/18 12:29 - Labs Result Diagrams: 06/06/18 12:20 06/06/18 12:20 Labs: Laboratory Results - last 24 hr 06/06/18 06/06/18 06/06/18 12:20 12:20 12:30 WBC 10.1 RBC 4.96 Hgb 15.8 Hct 46.1 MCV 92.9 MCH 31.9 MCHC 34.3 RDW 13.1 Plt Count 279 MPV 11.2 H Neut % (Auto) 56.0 Lymph % (Auto) 35.7 H [place] % (Auto) 5.0 Eos % (Auto) 2.9 Baso % (Auto) 0.4 Lymph # (Auto) 3.6 H [place] # (Auto) 0.5 Eos # (Auto) 0.3 Baso # (Auto) 0.04 Absolute Neuts (auto) 5.67 PT 12.7 H INR 1.12 APTT 36.9 pO2 26 L VBG pH 7.45 H VBG pCO2 39.0 L VBG HCO3 27.1 VBG Total CO2 28.3 H VBG O2 Sat (Calc) 59.6 VBG Base Excess 3.0 H VBG Potassium 4.6 Sodium 138.0 Chloride 104.0 Glucose 251 H Lactate 2.0 FiO2 21.0 Venous Blood Potassium 4.6 Assessment & Plan - Assessment and Plan (Free Text) Assessment: 57M w/recurrent neck abscesses s/p I & D consulted for wound evaluation Plan: FU CT neck Pain control Continue local wound care Follow up with Dr. Thomas in the office as directed Imaging negative for residual abscess No surgical intervention at this time Will NAHUN Arias, PGY-2 - Date & Time Date: 06/06/18 Time: 12:51
--- NOTE | 2018-06-06 12:53 | RAD ---
Date of service: 06/06/2018 HISTORY: Sepsis Patient COMPARISON: 12/29/2017 TECHNIQUE: 1 view obtained. FINDINGS: LUNGS: No active pulmonary disease. PLEURA: No significant pleural effusion identified, no pneumothorax apparent. CARDIOVASCULAR: No aortic atherosclerotic calcification present. Normal cardiac size. No pulmonary vascular congestion. OSSEOUS STRUCTURES: No significant abnormalities. VISUALIZED UPPER ABDOMEN: Normal. OTHER FINDINGS: None. IMPRESSION: No active disease.
[2018-06-06 12:57] LABS: ALB/GLOB RATIO 1.2 (1.1-1.8); ALBUMIN 4.2 g/dL (3.0-4.8); ALT/SGPT 27 U/L (7-56); AST/SGOT 26 U/L (17-59); BLOOD UREA NITROGEN 17 mg/dL (7-21); CALCIUM 9.4 mg/dL (8.4-10.5); GFR NON-AFRICAN AMERICAN > 60
[2018-06-06 13:02] LABS: B-TYPE NATRIURETIC PEPTIDE 12.2 pg/mL (0-450); TROPONIN I < 0.01 ng/mL
--- NOTE | 2018-06-06 14:06 | CT ---
Date of service: 06/06/2018 PROCEDURE: CT HEAD WITHOUT CONTRAST. HISTORY: headache COMPARISON: None available. TECHNIQUE: Axial computed tomography images were obtained through the head/brain without intravenous contrast. Radiation dose: Total exam DLP = 897.75 mGy-cm. This CT exam was performed using one or more of the following dose reduction techniques: Automated exposure control, adjustment of the mA and/or kV according to patient size, and/or use of iterative reconstruction technique. FINDINGS: HEMORRHAGE: No intracranial hemorrhage. BRAIN: No mass effect or edema. No atrophy or chronic microvascular ischemic changes. VENTRICLES: Unremarkable. No hydrocephalus. CALVARIUM: Unremarkable. PARANASAL SINUSES: Unremarkable as visualized. No significant inflammatory changes. MASTOID AIR CELLS: Unremarkable as visualized. No inflammatory changes. OTHER FINDINGS: None. IMPRESSION: No acute intracranial findings
--- NOTE | 2018-06-06 14:11 | CT ---
Date of service: 06/06/2018 PROCEDURE: CT NECK WITHOUT CONTRAST HISTORY: neck abscess w/ worsening symptoms COMPARISON: 05/25/2018 TECHNIQUE: CT of the neck without intravenous contrast. Coronal and sagittal reformats generated. Radiation dose: Total exam DLP = 464.23 mGy-cm. This CT exam was performed using one or more of the following dose reduction techniques: Automated exposure control, adjustment of the mA and/or kV according to patient size, and/or use of iterative reconstruction technique. FINDINGS: NASOPHARYNX: Unremarkable. SUPRAHYOID NECK: Unremarkable oropharynx, oral cavity, parapharyngeal space and retropharyngeal space. INFRAHYOID NECK: Unremarkable larynx, hypopharynx, and supraglottic space. Vocal cords intact. MASS: There is a surgical defect and drainage catheter in the left posterior neck at the site of previously identified abscess. There is no evidence of residual abscess. GLANDS: Parotid and submandibular glands unremarkable. Normal size thyroid gland, without nodule. LYMPH NODES: Normal. No lymphadenopathy. CERVICAL SPINE: No fracture or focal lesion. OTHER FINDINGS: None. IMPRESSION: There is a surgical defect and drainage catheter in the left posterior neck at the site of previously identified abscess. There is no evidence of residual abscess.
[2018-06-06 15:56] VITALS: BP 109/77; PULSE 68; RESP 18; TEMP 98.6
--- NOTE | 2018-06-06 17:47 | CARD ---
APPROVED REPORT Date of service: 06/06/2018 EKG Measurement Heart [id number] <Conclusion> Sinus tachycardia Otherwise normal ECG
== END 2018-06-06 15:56 | disposition home or self-care (01) ==
LOC: ED 11:44
DX: L02.11 Cutaneous abscess of neck (principal); M54.2 Cervicalgia; E78.5 Hyperlipidemia, unspecified; I10 Essential (primary) hypertension; E11.9 Type 2 diabetes mellitus without complications; F17.210 Nicotine dependence, cigarettes, uncomplicated
CPT/HCPCS: 70450; 70490; 71045; 80053; 82803; 82948; 83735; 83880; 84100; 84484; 85025; 85610; 85651; 85730; 87040; 87070; 93005; 96374; 99283; J1885; J7030